=== PATIENT | female | born 1945 | race Caucasian/White ===

== ENCOUNTER 2017-01-07 11:45 | Emergency (ER) | payer MEDICARE ==
[2017-01-07 12:20] VITALS: RESP 18; TEMP 100
[2017-01-07] MEDS ORDERED: methylPREDNISolone SOD SUCCI 125 MG/2 ML VIAL IV STA (13:18)
[2017-01-07] MEDS ORDERED: IPRATROPIUM-ALBUTEROL 3 ML NEB INHALATION STA (13:18)
[2017-01-07] MEDS ORDERED: SODIUM CHLORIDE 0.9% 1,000 ML IV STA ×2 (13:18)
[2017-01-07] MEDS ORDERED: ACETAMINOPHEN TAB 500 MG TAB PO STA (13:21)
--- NOTE | 2017-01-07 13:40 | ED ---
URI HPI - General Chief Complaint: Upper Respiratory Infection Stated Complaint: poss uri,coughing Time Seen by Provider: 01/07/17 13:10 Source: patient, RN notes reviewed, old records reviewed Mode of arrival: ambulatory Limitations: no limitations - History of Present Illness Initial Comments: this is a 71-year-old female presents emergency Department chief complaint of cough and congestion for the past 3 weeks. She reports that she went to see a psychiatrist in psychiatrist placed her on Amoxil 1 week ago. She reports she has been taking and has approximately 3 days left. Patient states that the cough is continue to linger and she has productive sputum. Denies being a smoker. Reports that she ultimately very healthy. Denies any surgical or medical history besides depression. Patient reports that she has had no Motrin or Tylenol. She reports she felt very chilled and feels very fatigued. She reports that her cough is been Martha the point where she feels that she needs to vomit. Patient denies any recent fever, chills, shortness of breath, chest pain, back pain, abdominal pain, nausea vomiting, numbness or tingling, dysuria or hematuria, constipation or diarrhea, headaches or visual changes, or any other current symptoms - Related Data Previous Rx's Medication Instructions Recorded Albuterol Inhaler [Ventolin Hfa 1 - 2 puff INHALATION Q6HR PRN #1 01/07/17 Inhaler] inhaler Levofloxacin [Levaquin] 750 mg PO DAILY #7 tab 01/07/17 Promethazine/Dextromethorphan 5 ml PO TID #120 ml 01/07/17 [Phenergan DM Syrup] predniSONE 50 mg PO DAILY #7 tablet 01/07/17 Allergies Allergy/AdvReac Type Severity Reaction Status Date / Time No Known Allergies Allergy Verified 01/07/17 12:20 Review of Systems ROS Statement: Those systems with pertinent positive or pertinent negative responses have been documented in the HPI. ROS Other: All systems not noted in ROS Statement are negative. Past Medical History Additional Past Medical History / Comment(s): depression History of Any Multi-Drug Resistant Organisms: None Reported Past Surgical History: Orthopedic Surgery Additional Past Surgical History / Comment(s): shoulder feet and wrist Past Psychological History: Depression Smoking Status: Never smoker Past Alcohol Use History: None Reported Past Drug Use History: None Reported General Exam - General Exam Comments Initial Comments: this is a 71-year-old female. No acute distress. Limitations: no limitations General appearance: alert, in no apparent distress Head exam: Present: atraumatic, normocephalic, normal inspection Eye exam: Present: normal appearance, PERRL, EOMI. Absent: scleral icterus, conjunctival injection, periorbital swelling ENT exam: Present: normal exam, mucous membranes moist Neck exam: Present: normal inspection. Absent: tenderness, meningismus, lymphadenopathy Respiratory exam: Present: wheezes, rhonchi, other (has coarse lung sounds in significant productive cough.). Absent: normal lung sounds bilaterally, respiratory distress, rales, stridor Cardiovascular Exam: Present: regular rate, normal rhythm, normal heart sounds. Absent: systolic murmur, diastolic murmur, rubs, gallop, clicks GI/Abdominal exam: Present: soft, normal bowel sounds. Absent: distended, tenderness, guarding, rebound, rigid Extremities exam: Present: normal inspection, full ROM, normal capillary refill. Absent: tenderness, pedal edema, joint swelling, calf tenderness Back exam: Present: normal inspection Neurological exam: Present: alert, oriented X3, CN II-XII intact Psychiatric exam: Present: normal affect, normal mood Skin exam: Present: warm, dry, intact, normal color. Absent: rash Course Vital Signs 01/07/17 01/07/17 01/07/17 12:15 13:31 14:13 Temperature 100.0 F H Pulse Rate 85 78 79 Respiratory 18 18 Rate Blood Pressure 158/81 125/73 O2 Sat by Pulse 95 92 L Oximetry 01/07/17 14:46 Temperature Pulse Rate 77 Respiratory 18 Rate Blood Pressure 130/68 O2 Sat by Pulse 96 Oximetry Medical Decision Making - Medical Decision Making this is a 71-year-old female presents emergency Department chief complaint of cough and congestion for the past 3 weeks. She reports that she went to see a psychiatrist in psychiatrist placed her on Amoxil 1 week ago. She reports she has been taking and has approximately 3 days left. Patient states that the cough is continue to linger and she has productive sputum. Denies being a smoker. Patient did have significant cough and course lung sounds. PAtient CXR reviewed, no significant pneumonia. Lab work was reviewed, negative for any acute process. Patient cardiac enzymes and EKG are within normal limtiis. Patient given douneb treatment and is feeling better at this time. She was reevaluated and breathing has improved. Patient will be dsicharged with Rc for prednisone and levaquin. Patient radha be started on cough syrup and inhlaer. Discussed patient must follow up with PC tomorrow, and return if any alarming signs or symptoms occur. Patient agrees to treatment plna and will comply, return parameters discussed. - Lab Data Result diagrams: 01/07/17 13:30 01/07/17 13:30 Lab Results 01/07/17 01/07/17 01/07/17 Range/Units 13:30 13:30 13:30 WBC 9.1 (3.8-10.6) k/uL RBC 5.04 (3.80-5.40) m/uL Hgb 15.0 (11.4-16.0) gm/dL Hct 46.4 H (34.0-46.0) % MCV 92.2 (80.0-100.0) fL MCH 29.9 (25.0-35.0) pg MCHC 32.4 (31.0-37.0) g/dL RDW 14.6 (11.5-15.5) % Plt Count 337 (150-450) k/uL Neutrophils % 62 % Lymphocytes % 27 % Monocytes % 6 % Eosinophils % 3 % Basophils % 1 % Neutrophils # 5.6 (1.3-7.7) k/uL Lymphocytes # 2.5 (1.0-4.8) k/uL Monocytes # 0.5 (0-1.0) k/uL Eosinophils # 0.3 (0-0.7) k/uL Basophils # 0.1 (0-0.2) k/uL PT (9.0-12.0) sec INR (<1.2) APTT (22.0-30.0) sec Sodium 140 (137-145) mmol/L Potassium 4.4 (3.5-5.1) mmol/L Chloride 104 (98-107) mmol/L Carbon Dioxide 25 (22-30) mmol/L Anion Gap 11 mmol/L BUN 12 (7-17) mg/dL Creatinine 0.77 (0.52-1.04) mg/dL Est GFR (MDRD) Af Amer >60 (>60 ml/min/1.73 sqM) Est GFR (MDRD) Non-Af >60 (>60 ml/min/1.73 sqM) Glucose 92 (74-99) mg/dL Calcium 10.0 (8.4-10.2) mg/dL Magnesium 2.1 (1.6-2.3) mg/dL Total Bilirubin 0.5 (0.2-1.3) mg/dL AST 17 (14-36) U/L ALT 29 (9-52) U/L Alkaline Phosphatase 102 (38-126) U/L Total Creatine Kinase 31 (30-135) U/L CK-MB (CK-2) 0.3 (0.0-2.4) ng/mL CK-MB (CK-2) Rel Index 1.0 Troponin I <0.012 (0.000-0.034) ng/mL Total Protein 6.7 (6.3-8.2) g/dL Albumin 4.4 (3.5-5.0) g/dL Urine Color Urine Appearance (Clear) Urine pH (5.0-8.0) Ur Specific [place] (1.001-1.035) Urine Protein (Negative) Urine Glucose (UA) (Negative) Urine Ketones (Negative) Urine Blood (Negative) Urine Nitrite (Negative) Urine Bilirubin (Negative) Urine Urobilinogen (<2.0) mg/dL Ur Leukocyte Esterase (Negative) 01/07/17 01/07/17 Range/Units 13:30 13:30 WBC (3.8-10.6) k/uL RBC (3.80-5.40) m/uL Hgb (11.4-16.0) gm/dL Hct (34.0-46.0) % MCV (80.0-100.0) fL MCH (25.0-35.0) pg MCHC (31.0-37.0) g/dL RDW (11.5-15.5) % Plt Count (150-450) k/uL Neutrophils % % Lymphocytes % % Monocytes % % Eosinophils % % Basophils % % Neutrophils # (1.3-7.7) k/uL Lymphocytes # (1.0-4.8) k/uL Monocytes # (0-1.0) k/uL Eosinophils # (0-0.7) k/uL Basophils # (0-0.2) k/uL PT 10.2 (9.0-12.0) sec INR 1.0 (<1.2) APTT 22.5 (22.0-30.0) sec Sodium (137-145) mmol/L Potassium (3.5-5.1) mmol/L Chloride (98-107) mmol/L Carbon Dioxide (22-30) mmol/L Anion Gap mmol/L BUN (7-17) mg/dL Creatinine (0.52-1.04) mg/dL Est GFR (MDRD) Af Amer (>60 ml/min/1.73 sqM) Est GFR (MDRD) Non-Af (>60 ml/min/1.73 sqM) Glucose (74-99) mg/dL Calcium (8.4-10.2) mg/dL Magnesium (1.6-2.3) mg/dL Total Bilirubin (0.2-1.3) mg/dL AST (14-36) U/L ALT (9-52) U/L Alkaline Phosphatase (38-126) U/L Total Creatine Kinase (30-135) U/L CK-MB (CK-2) (0.0-2.4) ng/mL CK-MB (CK-2) Rel Index Troponin I (0.000-0.034) ng/mL Total Protein (6.3-8.2) g/dL Albumin (3.5-5.0) g/dL Urine Color Colorless Urine Appearance Clear (Clear) Urine pH 7.0 (5.0-8.0) Ur Specific [place] 1.003 (1.001-1.035) Urine Protein Negative (Negative) Urine Glucose (UA) Negative (Negative) Urine Ketones Negative (Negative) Urine Blood Negative (Negative) Urine Nitrite Negative (Negative) Urine Bilirubin Negative (Negative) Urine Urobilinogen <2.0 (<2.0) mg/dL Ur Leukocyte Esterase Negative (Negative) 01/07/17 14:25 EKG shows normal sinus rhythm. Possible left atrial enlargement. Borderline EKG. Ventricularly of 76 beats per minute. TN interval 146. QRS ration 90 ms. QT QTc is 380/436 no seconds. No drift elevation or T-wave inversion. No speech or ventricular arrhythmias. - Radiology Data Radiology results: report reviewed Increased perihilar markings consistent with but not diagnostic of pneumonia. Left basilar atelectasis. Cannot exclude a tiny left effusion. Disposition Clinical Impression: Bronchitis Disposition: HOME SELF-CARE Condition: Good Instructions: Acute Bronchitis (ED) Additional Instructions: Patient is to take antibiotics and steroids as prescribed. She will follow-up with her primary care provider within the next 1-2 days. Return to the emergency department if any alarming signs occur.. Prescriptions: Albuterol Inhaler [Ventolin Hfa Inhaler] 1 - 2 puff INHALATION Q6HR PRN #1 inhaler PRN Reason: Shortness Of Breath Levofloxacin [Levaquin] 750 mg PO DAILY #7 tab predniSONE 50 mg PO DAILY #7 tablet Promethazine/Dextromethorphan [Phenergan DM Syrup] 5 ml PO TID #120 ml Referrals: Rohan Hernandez MD [Primary Care Provider] - 1-2 days Time of Disposition: 14:28
[2017-01-07 13:43] LABS: Appearance,Urine Clear (Clear); Bilirubin,Urine Negative (Negative); Glucose,Urine (UA) Negative (Negative); Ketones,Urine Negative (Negative); Leukocyte Esterase,Urine Negative (Negative); Nitrite,Urine Negative (Negative); Protein,Urine Negative (Negative); Specific Gravity,Urine 1.003 (1.001-1.035); UA Billing (MACRO vs. MICRO) CHEM; Urobilinogen,Urine <2.0 mg/dL (<2.0)
[2017-01-07 13:44] LABS: Basophils # (A) 0.1 k/uL (0-0.2); Basophils % (A) 1 %; CHCM 33.8; Eosinophils # (A) 0.3 k/uL (0-0.7); Eosinophils % (A) 3 %; HCT 46.4 % (34.0-46.0); HDW 2.36; Luc # (Auto) 0.13; Luc % (Auto) 1; Lymphocytes # (A) 2.5 k/uL (1.0-4.8); Lymphocytes % (A) 27 %; MCH 29.9 pg (25.0-35.0); MCHC 32.4 g/dL (31.0-37.0); MCV 92.2 fL (80.0-100.0); Mean Platelet Volume 6.9; Monocytes # (A) 0.5 k/uL (0-1.0); Monocytes % (A) 6 %; Neutrophils # (A) 5.6 k/uL (1.3-7.7); Neutrophils % (A) 62 %; RBC 5.04 m/uL (3.80-5.40); RDW 14.6 % (11.5-15.5); WBC 9.1 k/uL (3.8-10.6); WBC (Perox) 8.91
[2017-01-07 13:53] LABS: ALT 29 U/L (9-52); AST 17 U/L (14-36); Alkaline Phosphatase 102 U/L (38-126); Anion Gap 11 mmol/L; Blood Urea Nitrogen 12 mg/dL (7-17); Carbon Dioxide 25 mmol/L (22-30); Chloride 104 mmol/L (98-107); Glucose 92 mg/dL (74-99); Magnesium 2.1 mg/dL (1.6-2.3); Non-African American GFR(MDRD) >60 (>60 ml/min/1.73 sqM); Potassium 4.4 mmol/L (3.5-5.1); Sodium 140 mmol/L (137-145); Total Bilirubin 0.5 mg/dL (0.2-1.3); Total Protein 6.7 g/dL (6.3-8.2)
[2017-01-07 13:55] LABS: Partial Thromboplastin Time 22.5 sec (22.0-30.0); Prothrombin Time 10.2 sec (9.0-12.0)
--- NOTE | 2017-01-07 14:03 | XR ---
EXAMINATION TYPE: XR chest 2V DATE OF EXAM: 01/07/2017 HISTORY: difficulty breathing. REFERENCE: NONE. FINDINGS: There are increased perihilar markings. There is no pneumonia or edema. There is some atele ctatic change at the left lung base. I could not exclude a small left effusion. IMPRESSION: 1. INCREASED PERIHILAR MARKINGS CONSISTENT WITH BUT NOT DIAGNOSTIC OF PNEUMONIA. 2. LEFT BASILAR ATELECTASIS. 3. I COULD NOT EXCLUDE A TINY LEFT EFFUSION.
[2017-01-07 14:13] LABS: Creatine Kinase 31 U/L (30-135)
[2017-01-07 14:26] LABS: Creatine Kinase MB 0.3 ng/mL (0.0-2.4); Troponin I <0.012 ng/mL (0.000-0.034)
[2017-01-07] MEDS ORDERED: LEVOFLOXACIN 750 MG TAB PO STA (14:30)
[2017-01-07 14:49] VITALS: BP 130/68; PULSE 77
== END 2017-01-07 14:53 | disposition home or self-care (01) ==
LOC: EC 11:45
DX: J40 Bronchitis, not specified as acute or chronic (principal); R53.83 Other fatigue
CPT/HCPCS: 99284 ×2; 96374 ×2; 96361 ×2; 36415; 94640; 93005; 80053; 82550; 82553; 83735; 84484; 85025; 85610; 85730; 81003; 87040; 87077; 87186; 71020; J2930

== ENCOUNTER → 2021-08-01 | Outpatient (CLI) | payer MEDICARE, OTHER ==
--- NOTE | 2021-08-01 22:37 | MR ---
MRI CERVICAL SPINE: CLINICAL HISTORY: Neck pain. Worsening neck pain extending into right arm TECHNIQUE: Multiplanar, multisequence imaging of the cervical spine is performed without contrast. COMPARISON: None. FINDINGS: Sagittal images of the cervical spine show the craniocervical junction to appear within nor mal limits. The cervical and upper thoracic spinal cord is normal in course, caliber, and signal. S ubtle grade 1 anterolisthesis C2 on C3. Vertebral alignment is otherwise satisfactory. The vertebral body heights are normal. Moderate to severe multilevel spurring and disc space narrowing at C5-C6 a nd C6-C7 levels. Mild disc space narrowing at additional levels. Some heterogeneous Modic type II end plate changes C5-C6 and C6-C7 level. Posterior disc herniations mildly efface the anterior thecal sac at all visualized upper thoracic levels. Subtle Axial images at C2-C3 level appear within normal limits. Axial images at C3-C4 level show broad-based posterior disc protrusion along with uncovertebral facet degenerative changes bilaterally, there is effacement of anterior thecal sac along with mild to mode rate right greater than left bilateral neural foraminal narrowing. Axial images at C4-C5 levels from broad-based left paracentral disc protrusion effacing the anterior thecal sac, patent bilateral neural foramina. Axial images at C5-C6 level show moderate size broad-based posterior disc protrusion effacing anterio r thecal sac and causing mild left along with moderate right-sided neural foraminal narrowing. Axial images at C6-C7 level showed broad based posterior disc protrusion effaces the anterior thecal sac up to ventral surface of spinal cord and causing advanced right along with moderate left-sided ne ural foraminal narrowing. Axial images at C7-T1 level appear within normal limits. IMPRESSION: Multilevel degenerative changes in cervical spine greatest at C6-C7 level as detailed abo ve.
== END | disposition home or self-care (01) ==
LOC: RADMRIMAIN 11:10
PROVIDERS: ATTEND Orthopaedic Surgery Orthopaedic Surgery of the Spine
DX: M47.812 Spondylosis without myelopathy or radiculopathy, cervical region (principal); M79.12 Myalgia of auxiliary muscles, head and neck; M50.322 Other cervical disc degeneration at C5-C6 level; M50.323 Other cervical disc degeneration at C6-C7 level; M43.12 Spondylolisthesis, cervical region; M25.78 Osteophyte, vertebrae; M25.511 Pain in right shoulder; M75.41 Impingement syndrome of right shoulder
CPT/HCPCS: 72141

== ENCOUNTER 2024-09-24 08:45 | Emergency (ER) | payer OTHER, MEDICARE ==
--- NOTE | 2024-09-24 08:54 | ED ---
General Adult HPI - General Chief complaint: Urogenital Stated complaint: Urogenital Time Seen by Provider: 09/24/24 08:53 Source: patient, RN notes reviewed Mode of arrival: ambulatory Limitations: no limitations - History of Present Illness Initial comments: 79-year-old female presenting to the emergency department with complaints of urinary retention and constipation. Patient states that she has not had a "good "bowel movement in about 3 days. Additionally, this morning patient states that she had a urge to use the bathroom and to urinate and was straining to go however was unable to except for a mild amount of trickling. She is complaining of mid abdominal/chest history of small bowel obstruction/bowel obstructions, urinary retention. States that she has not been passing gas. Denies nausea, vomiting, fevers or chills. - Related Data Previous Rx's Medication Instructions Recorded Albuterol Inhaler [Ventolin Hfa 1 - 2 puff INHALATION Q6HR PRN #1 01/07/17 Inhaler] inhaler Levofloxacin [Levaquin] 750 mg PO DAILY #7 tab 01/07/17 Promethazine/Dextromethorphan 5 ml PO TID #120 ml 01/07/17 [Phenergan DM Syrup] predniSONE 50 mg PO DAILY #7 tablet 01/07/17 Allergies Allergy/AdvReac Type Severity Reaction Status Date / Time No Known Allergies Allergy Verified 09/24/24 08:50 Review of Systems ROS Statement: Those systems with pertinent positive or pertinent negative responses have been documented in the HPI. ROS Other: All systems not noted in ROS Statement are negative. Past Medical History Past Medical History: Atrial Fibrillation Additional Past Medical History / Comment(s): depression History of Any Multi-Drug Resistant Organisms: None Reported Past Surgical History: Orthopedic Surgery Additional Past Surgical History / Comment(s): shoulder feet and wrist Past Psychological History: Anxiety, Depression Past Alcohol Use History: None Reported Past Drug Use History: None Reported General Exam Limitations: no limitations General appearance: alert, in no apparent distress Neck exam: Present: normal inspection. Absent: tenderness, meningismus, lymphadenopathy Respiratory exam: Present: normal lung sounds bilaterally. Absent: respiratory distress, wheezes, rales, rhonchi, stridor Cardiovascular Exam: Present: regular rate, normal rhythm, normal heart sounds. Absent: systolic murmur, diastolic murmur, rubs, gallop, clicks GI/Abdominal exam: Present: soft, tenderness (supurapubic), normal bowel sounds. Absent: distended, guarding, rebound, rigid Extremities exam: Present: normal inspection, full ROM, normal capillary refill. Absent: tenderness, pedal edema, joint swelling, calf tenderness Back exam: Present: normal inspection. Absent: CVA tenderness (R), CVA tenderness (L) Skin exam: Present: warm, dry, intact, normal color. Absent: rash Course Vital Signs 09/24/24 09/24/24 08:46 11:45 Temperature 97.7 F 98.8 F Pulse Rate 113 H 91 Respiratory 17 20 Rate Blood Pressure 152/95 132/96 O2 Sat by Pulse 98 97 Oximetry Medical Decision Making - Medical Decision Making Was pt. sent in by a medical professional or institution (, PA, HANDBAG FRAMES INSPECTOR, urgent care, hospital, or fpc...) When possible be specific @ -No Did you speak to anyone other than the patient for history (EMS, parent, family, police, friend...)? What history was obtained from this source @ -No Did you review nursing and triage notes (agree or disagree)? Why? @ -I reviewed and agree with nursing and triage notes Were old charts reviewed (outside hosp., previous admission, EMS record, old EKG, old radiological studies, urgent care reports/EKG's, fpc records)? Report findings @ -No old charts were reviewed Differential Diagnosis (chest pain, altered mental status, abdominal pain women, abdominal pain men, vaginal bleeding, weakness, fever, dyspnea, syncope, headache, dizziness, GI bleed, back pain, seizure, CVA, palpatations, mental health, musculoskeletal)? @ -Constipation, urinary retention, bowel obstruction, this is not all-inclusive EKG interpreted by me (3pts min.). @ -None X-rays interpreted by me (1pt min.). @ -X-ray of the abdomen is unremarkable. CT interpreted by me (1pt min.). @ -None done U/S interpreted by me (1pt. min.). @ -None done What testing was considered but not performed or refused? (CT, X-rays, U/S, labs)? Why? @ -None What meds were considered but not given or refused? Why? @ -None Did you discuss the management of the patient with other professionals (professionals i.e. DrAnup, PA, HANDBAG FRAMES INSPECTOR, lab, RT, psych nurse, transition social worker, gas inspector, teacher, motorized squad commanding officer, rn case mgr)? Give summary @ -No Was smoking cessation discussed for >3mins.? @ -No Was critical care preformed (if so, how long)? @ -No Were there social determinants of health that impacted care today? How? (Homelessness, low income, unemployed, alcoholism, drug addiction, transportation, low edu. Level, literacy, decrease access to med. care, care home, rehab)? @ -No Was there de-escalation of care discussed even if they declined (Discuss DNR or withdrawal of care, Hospice)? DNR status @ -No What co-morbidities impacted this encounter? (DM, HTN, Smoking, COPD, CAD, Cancer, CVA, ARF, Chemo, Hep., AIDS, mental health diagnosis, sleep apnea, morbid obesity)? @ -None Was patient admitted / discharged? Hospital course, mention meds given and route, prescriptions, significant lab abnormalities, going to OR and other pertinent info. @ -Discharge. 79-year-old female was into the emergency room with complaints of urinary retention and constipation. Bladder scan completed reveals over 900 cc of urine within the bladder. Tubbs catheter was placed with immediate relief of abdominal distention. Urinalysis reveals no signs of infection. X-ray of the abdomen is unremarkable. Patient is provided with urology referral. Patient is discharged with catheter in place. Case is discussed my attending Dr. Villaseñor Undiagnosed new problem with uncertain prognosis? @ -No Drug Therapy requiring intensive monitoring for toxicity (Heparin, Nitro, Insulin, Cardizem)? @ -No Were any procedures done? @ -No Diagnosis/symptom? @ -urinary retention Acute, or Chronic, or Acute on Chronic? @ -acute Uncomplicated (without systemic symptoms) or Complicated (systemic symptoms)? @ -uncomplicated Side effects of treatment? @ -No Exacerbation, Progression, or Severe Exacerbation? @ -No Poses a threat to life or bodily function? How? (Chest pain, [place], [place], pneumonia, PE, COPD, DKA, ARF, appy, cholecystitis, CVA, Diverticulitis, Homicidal, Suicidal, threat to staff... and all critical care pts) @ -No - Lab Data Lab Results 09/24/24 Range/Units 09:35 Urine Color Colorless Urine Appearance Clear (Clear) Urine pH 5.5 (5.0-8.0) Ur Specific [place] 1.005 (1.001-1.035) Urine Protein Negative (Negative) Urine Glucose (UA) Negative (Negative) Urine Ketones Negative (Negative) Urine Blood Negative (Negative) Urine Nitrite Negative (Negative) Urine Bilirubin Negative (Negative) Urine Urobilinogen <2.0 (<2.0) mg/dL Ur Leukocyte Esterase Negative (Negative) Disposition Clinical Impression: Urinary retention Disposition: HOME SELF-CARE Condition: Good Instructions (If sedation given, give patient instructions): Tubbs Catheter Placement and Care (ED), Acute Urinary Retention in Women (ED) Additional Instructions: Please return to the Emergency Department if symptoms worsen or any other concerns. Please follow-up with provided urologist for further evaluation. Is patient prescribed a controlled substance at d/c from ED?: No Referrals: Rohan Hernandez MD [Primary Care Provider] - 1-2 days Derrick Augustine MD [STAFF PHYSICIAN] - 1-2 days Time of Disposition: 10:23
[2024-09-24 09:46] LABS: Appearance,Urine Clear (Clear); Bilirubin,Urine Negative (Negative); Blood,Urine Negative (Negative); Color,Urine Colorless; Glucose,Urine (UA) Negative (Negative); Ketones,Urine Negative (Negative); Leukocyte Esterase,Urine Negative (Negative); Nitrite,Urine Negative (Negative); PH, Urine 5.5 (5.0-8.0); Protein,Urine Negative (Negative); Specific Gravity,Urine 1.005 (1.001-1.035); Urobilinogen,Urine <2.0 mg/dL (<2.0)
--- NOTE | 2024-09-24 10:16 | XR ---
EXAMINATION TYPE: XR KUB DATE OF EXAM: 09/24/2024 9:51 AM COMPARISON: None. CLINICAL INDICATION: Female, 79 years old with history of constipation, urine retention, TECHNIQUE: XR KUB view(s) obtained. FINDINGS: There is a normal bowel gas pattern. No free air is evident. No suspicious differential air-fluid lev els. Psoas margins are normal. No organomegaly is present. Calcification is in the upper pelvis could be related to calcified fibroids. IMPRESSION: 1. Unremarkable [facility], , 09/24/2024 10:13 AM
[2024-09-24 11:49] VITALS: BP 132/96; PULSE 91; RESP 20; TEMP 98.8
== END 2024-09-24 11:49 | disposition home or self-care (01) ==
LOC: EC 08:45
DX: R33.9 Retention of urine, unspecified (principal); R10.30 Lower abdominal pain, unspecified
CPT/HCPCS: 51702; 51798; 74018; 81003; 99284

== ENCOUNTER 2024-09-25 11:05 | Emergency (ER) | payer OTHER, MEDICARE ==
--- NOTE | 2024-09-25 11:41 | ED ---
Recheck HPI - General Chief Complaint: Recheck/Abnormal Lab/Rx Stated Complaint: Urogenital Time Seen by Provider: 09/25/24 11:25 Source: patient, RN notes reviewed Mode of arrival: ambulatory Limitations: no limitations - History of Present Illness Initial Comments: 79-year-old female presenting to the emergency department for reevaluation. Patient states that she was evaluated yesterday emergency department for urinary retention and constipation. Patient had over 900 cc of urine within her bladder when she was discharged with a Tubbs catheter in place. Patient states that this morning the catheter bag was very full and heavy causing pulling on her leg and leakage from the drainage site. Additionally, patient states that she is still constipated. States that she is still passing gas. Denies nausea, vomiting, abdominal pain. Patient has appointment with her PCP at 1430 this afternoon. - Related Data Previous Rx's Medication Instructions Recorded Albuterol Inhaler [Ventolin Hfa 1 - 2 puff INHALATION Q6HR PRN #1 01/07/17 Inhaler] inhaler Levofloxacin [Levaquin] 750 mg PO DAILY #7 tab 01/07/17 Promethazine/Dextromethorphan 5 ml PO TID #120 ml 01/07/17 [Phenergan DM Syrup] predniSONE 50 mg PO DAILY #7 tablet 01/07/17 Allergies Allergy/AdvReac Type Severity Reaction Status Date / Time No Known Allergies Allergy Verified 09/25/24 11:11 Review of Systems ROS Statement: Those systems with pertinent positive or pertinent negative responses have been documented in the HPI. ROS Other: All systems not noted in ROS Statement are negative. Past Medical History Past Medical History: Atrial Fibrillation Additional Past Medical History / Comment(s): depression History of Any Multi-Drug Resistant Organisms: None Reported Past Surgical History: Orthopedic Surgery Additional Past Surgical History / Comment(s): shoulder feet and wrist Past Psychological History: Anxiety, Depression Smoking Status: Never smoker Past Alcohol Use History: None Reported Past Drug Use History: None Reported General Exam Limitations: no limitations General appearance: alert, in no apparent distress Neck exam: Present: normal inspection. Absent: tenderness, meningismus, lymphadenopathy Respiratory exam: Present: normal lung sounds bilaterally. Absent: respiratory distress, wheezes, rales, rhonchi, stridor Cardiovascular Exam: Present: regular rate, normal rhythm, normal heart sounds. Absent: systolic murmur, diastolic murmur, rubs, gallop, clicks GI/Abdominal exam: Present: soft, normal bowel sounds. Absent: distended, tenderness, guarding, rebound, rigid Extremities exam: Present: normal inspection, full ROM, normal capillary refill. Absent: tenderness, pedal edema, joint swelling, calf tenderness Back exam: Present: normal inspection Skin exam: Present: warm, dry, intact, normal color. Absent: rash Course Vital Signs 09/25/24 09/25/24 11:06 11:56 Temperature 97.7 F 98.1 F Pulse Rate 64 62 Respiratory 20 18 Rate Blood Pressure 130/81 133/52 O2 Sat by Pulse 96 96 Oximetry Medical Decision Making - Medical Decision Making Was pt. sent in by a medical professional or institution (, PA, MISSION SUPPORT SPECIALIST, urgent care, hospital, or longterm...) When possible be specific @ -No Did you speak to anyone other than the patient for history (EMS, parent, family, police, friend...)? What history was obtained from this source @ -No Did you review nursing and triage notes (agree or disagree)? Why? @ -I reviewed and agree with nursing and triage notes Were old charts reviewed (outside hosp., previous admission, EMS record, old EKG, old radiological studies, urgent care reports/EKG's, longterm records)? Report findings @Reviewed x-ray KUB completed on 09/24/2024 that revealed a nonspecific abdomen. Differential Diagnosis (chest pain, altered mental status, abdominal pain women, abdominal pain men, vaginal bleeding, weakness, fever, dyspnea, syncope, headache, dizziness, GI bleed, back pain, seizure, CVA, palpatations, mental health, musculoskeletal)? @ -Tubbs catheter blockage, constipation, urinary tract infection, small bowel obstruction, this is not all-inclusive EKG interpreted by me (3pts min.). @ -None X-rays interpreted by me (1pt min.). @ -None done CT interpreted by me (1pt min.). @ -None done U/S interpreted by me (1pt. min.). @ -None done What testing was considered but not performed or refused? (CT, X-rays, U/S, labs)? Why? @ -None What meds were considered but not given or refused? Why? @ -None Did you discuss the management of the patient with other professionals (professionals i.e. , PA, M[employer] SUPPORT SPECIALIST, lab, RT, psych nurse, social studies department chair, shop mechanic, teacher, patient safety officer, protective services case worker)? Give summary @ -No Was smoking cessation discussed for >3mins.? @ -No Was critical care preformed (if so, how long)? @ -No Were there social determinants of health that impacted care today? How? (Homelessness, low income, unemployed, alcoholism, drug addiction, transportation, low edu. Level, literacy, decrease access to med. care, snf, rehab)? @ -No Was there de-escalation of care discussed even if they declined (Discuss DNR or withdrawal of care, Hospice)? DNR status @ -No What co-morbidities impacted this encounter? (DM, HTN, Smoking, COPD, CAD, Can cer, CVA, ARF, Chemo, Hep., AIDS, mental health diagnosis, sleep apnea, morbid obesity)? @ -None Was patient admitted / discharged? Hospital course, mention meds given and route, prescriptions, significant lab abnormalities, going to OR and other pertinent info. @ -Discharge. 79-year-old female presents emergency room with urinary catheter complaints and constipation. Tubbs catheter was drained by nursing staff and leg bag was placed and patient states that she is feeling better. Catheter is draining appropriately. Patient has no abdominal pain. Reviewed x-ray from yesterday which revealed no evidence of obstruction or severe fecal retention. Discussed with patient that mild constipation is likely secondary to urinary retention. Patient provided with outpatient magnesium citrate to take at home so recommended to increase oral hydration and fiber intake. Return parameters discussed. Patient has appointment with PCP later this afternoon. Case discussed with my attending Dr. Villaseñor Undiagnosed new problem with uncertain prognosis? @ -No Drug Therapy requiring intensive monitoring for toxicity (Heparin, Nitro, Insulin, Cardizem)? @ -No Were any procedures done? @ -No Diagnosis/symptom? @ -Constipation Acute, or Chronic, or Acute on Chronic? @ -Acute Uncomplicated (without systemic symptoms) or Complicated (systemic symptoms)? @ -Uncomplicated Side effects of treatment? @ -No Exacerbation, Progression, or Severe Exacerbation? @ -No Poses a threat to life or bodily function? How? (Chest pain, [place], [place], pneumonia, PE, COPD, DKA, ARF, appy, cholecystitis, CVA, Diverticulitis, Homicidal, Suicidal, threat to staff... and all critical care pts) @ -No Disposition Clinical Impression: Constipation, Tubbs catheter problem Disposition: HOME SELF-CARE Condition: Good Instructions (If sedation given, give patient instructions): Constipation (ED) Additional Instructions: Please return to the Emergency Department if symptoms worsen or any other concerns. Is patient prescribed a controlled substance at d/c from ED?: No Referrals: Rohan Hernandez MD [Primary Care Provider] - 1-2 days Time of Disposition: 11:40
[2024-09-25] MEDS: MAGNESIUM CITRATE 296 ML BOTTLE PO ONE (11:56)
[2024-09-25 11:57] VITALS: BP 133/52; PULSE 62; RESP 18; TEMP 98.1
== END 2024-09-25 11:57 | disposition home or self-care (01) ==
LOC: EC 11:05
DX: T83.098A Other mechanical complication of other urinary catheter, initial encounter (principal); K59.00 Constipation, unspecified
CPT/HCPCS: 99283

== ENCOUNTER 2024-09-25 21:34 | Inpatient (IN) | payer MEDICARE, OTHER ==
--- NOTE | 2024-09-25 22:30 | ED ---
Female Urogenital HPI - General Source: patient Mode of arrival: ambulatory Limitations: no limitations <Lavern Ross - Last Filed: 09/25/24 22:29> <Kristin Rome - Last Filed: 09/26/24 08:24> - General Chief complaint: Urogenital Stated complaint: blood in urine Time Seen by Provider: 09/25/24 22:29 - History of Present Illness Initial comments: Quick note: 79-year-old female presenting with chief complaint of blood in the urine. Patient was seen here yesterday and earlier today, she had a Tubbs catheter placed due to urinary retention. She reports that starting earlier today she had blood in the urine which concerned her. She is on warfarin for atrial fibrillation. No pain. No injury or trauma. (Lavern Ross) Patient is a 79 y/o female PMH atrial fibrillation on coumadin presenting to hematuria. Patient had presented to the ER 2 days ago due to constipation and d ifficulty urinating. She was given milk of magnesia and a Tubbs catheter was placed. She presented this morning due to difficulty with her Tubbs bag and getting it to stay in place. She returned this evening after being on noticing blood in her urine. She endorses suprapubic pressure. She states she has been able to have a small bowel movement since taking milk of magnesia. She states that due to being in and out of the hospital today she has not taken her home atenolol or Coumadin. She currently denies chest pain, shortness of breath, palpitations or dizziness. Denies fevers or chills, nausea or vomiting. Denies diarrhea, does note having darker stools recently. Denies flank pain. Denies trauma. On arrival to the ER this evening patient was found to be in A-fib with RVR. She states that she is not usually in atrial fibrillation but does have a history of this. (Kristin Rome) - Related Data Home Medications Medication Instructions Recorded Confirmed FLUoxetine HCL [PROzac] 20 mg PO HS 09/26/24 09/26/24 QUEtiapine [SEROquel] 50 mg PO HS 09/26/24 09/26/24 Warfarin Sodium 2.5 mg PO SUTUTHSA 09/26/24 09/26/24 Warfarin Sodium 5 mg PO MOWEFR 09/26/24 09/26/24 atenoloL [Tenormin] 100 mg PO HS 09/26/24 09/26/24 dilTIAZem HCL [Cardizem CD] 120 mg PO DAILY 09/26/24 09/26/24 lamoTRIgine [LaMICtal] 300 mg PO HS 09/26/24 09/26/24 Previous Rx's Medication Instructions Recorded Apixaban [Eliquis] 5 mg PO BID #60 tab 09/26/24 Allergies Allergy/AdvReac Type Severity Reaction Status Date / Time No Known Allergies Allergy Verified 09/26/24 07:59 Review of Systems ROS Other: All systems not noted in ROS Statement are negative. <Lavern Ross - Last Filed: 09/25/24 22:29> ROS Other: All systems not noted in ROS Statement are negative. <Kristin Rome - Last Filed: 09/26/24 08:24> ROS Statement: Those systems with pertinent positive or pertinent negative responses have been documented in the HPI. Past Medical History Past Medical History: Atrial Fibrillation Additional Past Medical History / Comment(s): depression History of Any Multi-Drug Resistant Organisms: None Reported Past Surgical History: Orthopedic Surgery Additional Past Surgical History / Comment(s): shoulder feet and wrist Past Psychological History: Anxiety, Depression Smoking Status: Never smoker Past Alcohol Use History: None Reported Past Drug Use History: None Reported <Lavern Ross - Last Filed: 09/25/24 22:29> General Exam Limitations: no limitations <Lavern Ross - Last Filed: 09/25/24 22:29> <Kristin Rome - Last Filed: 09/26/24 08:24> - General Exam Comments Initial Comments: Visual Physical Exam Vital signs reviewed General: Well-appearing, nontoxic, no acute distress. Head: Normocephalic, atraumatic Eyes: PERRLA, EOMI ENT: Airway patent Chest: Nonlabored breathing Skin: No visual rash, normal skin tone Neuro: Alert and oriented 3 Musculoskeletal: No gross abnormalities (Lavern Ross) PE: CONSTITUTIONAL: No apparent distress, well appearing SKIN: Warm, dry, no jaundice, hives or petechiae EYES: Pupils are equally round, extraocular movements intact without nystagmus, clear conjunctiva, non-icteric sclera HENT: Normocephalic, atraumatic, moist mucus membranes, oropharynx clear without exudates NECK: , Full range of motion, normal appearance PULMONARY: Clear to auscultation without wheezes, rhonchi, or rales, normal excursion, no accessory muscle use and no stridor CARDIOVASCULAR: Tachycardia, irregularly irregular rate and rhythm, normal S1 and S2. No appreciated murmurs, however exam is limited due to A-fib with RVR, strong radial pulses with intact distal perfusion. No lower extremity edema GASTROINTESTINAL: Soft, active bowel sounds throughout, non-tender, non- distended, no palpable masses, no rebound or guarding. No hepatosplenomegaly, no CVA tenderness GENITOURINARY: MUSCULOSKELETAL: Extremities have no gross deformity, no edema, redness, or swelling. NEUROLOGIC:_a/o x 3, GCS 15, normal mentation and speech. Moves all extremities x 4 without motor or sensory deficit PSYCHIATRIC:_normal mood and affect, thought process is clear and linear (Kristin Rome) Course Vital Signs 09/25/24 09/26/24 09/26/24 21:57 01:00 04:08 Temperature 98.4 F Pulse Rate 136 H 124 H 98 Respiratory 18 17 17 Rate Blood Pressure 113/88 114/102 116/80 O2 Sat by Pulse 98 94 L 97 Oximetry 09/26/24 09/26/24 06:37 07:46 Temperature 98.4 F Pulse Rate 111 H 102 H Respiratory 17 18 Rate Blood Pressure 127/97 149/117 O2 Sat by Pulse 97 96 Oximetry Medical Decision Making <Lavern Ross - Last Filed: 09/25/24 22:29> - Lab Data Result diagrams: 09/26/24 00:10 09/26/24 00:10 <Kristin Rome - Last Filed: 09/26/24 08:24> - Medical Decision Making I performed the quick note portion of this visit, electronically signed Lavern Ross PA-C (Lavern Ross) Was pt. sent in by a medical professional or institution (NEWTON Parra, SERGING MACHINE OPERATOR [employer], urgent care, hospital, or long-term...) When possible be specific @ -No Did you speak to anyone other than the patient for history (EMS, parent, family, police, friend...)? What history was obtained from this source @ -Yes, I spoke with patient's significant other who states patient has had exertional dyspnea and generalized weakness over the last few months. Did you review nursing and triage notes (agree or disagree)? Why? @ -I reviewed nursing and triage notes Were old charts reviewed (outside hosp., previous admission, EMS record, old EKG, old radiological studies, urgent care reports/EKG's, long-term records)? Report findings @ -Medical records reviewed-Reviewed ED visits from today and yesterday, from ER visit this morning, states that patient had presented for difficulty managing her Tubbs catheter bag, reviewed ED visit from 09/24/2024, patient had presented for 3 days of constipation as well as urinary retention, states at that time patient had a bladder scan that revealed 900 cc of urine in the patient's bladder, a Tubbs catheter was placed, UA showed no signs of infection at that time, abdominal x-ray was unremarkable. Patient was discharged home with referral to urology Differential Diagnosis (chest pain, altered mental status, abdominal pain women, abdominal pain men, vaginal bleeding, weakness, fever, dyspnea, syncope, headache, dizziness, GI bleed, back pain, seizure, CVA, palpatations, mental health, musculoskeletal)? Differential Palpitations Ventricular arrhythmias, atrial arrhythmias, myocardial infarction, anemia, thyrotoxicosis, electrolyte imbalance, hypokalemia,missed medication doses, pulmonary disease, drugs, alcohol, anxiety, stress.... This is not meant to be an all-inclusive list. EKG interpreted by me (3pts min.). @Atrial fibrillation with RVR, rate 156 bpm, QT/QTc 266/54 ms, normal axis, T wave inversions lead aVR otherwise no significant elevations or depressions X-rays interpreted by me (1pt min.). Personally reviewed chest x-ray, I see no evidence of consolidation or pleural effusions agree with radiologist interpretation CT interpreted by me (1pt min.). @ -None done U/S interpreted by me (1pt. min.). @ -None done What testing was considered but not performed or refused? (CT, X-rays, U/S, labs)? Why? @Blood cultures were considered however patient had only mild leukocytosis, white blood cell count 11.38, she is afebrile, she was tachycardic I suspect tachycardia was secondary to missed dosages of home medications What meds were considered but not given or refused? Why? @ -None Did you discuss the management of the patient with other professionals (professionals i.e. , PA, SERGING MACHINE OPERATOR [employer], lab, RT, psych nurse, psychosocial rehabilitation counselor, vehicle insurance agent, teacher, chief digital officer, outsole caser)? Give summary @ -No Was smoking cessation discussed for >3mins.? @ -No Was critical care preformed (if so, how long)? Yes 35 minutes Were there social determinants of health that impacted care today? How? (Homelessness, low income, unemployed, alcoholism, drug addiction, transportation, low edu. Level, literacy, decrease access to med. care, [facility], rehab)? @ -No Was there de-escalation of care discussed even if they declined (Discuss DNR or withdrawal of care, Hospice)? @ -No What co-morbidities impacted this encounter? (DM, HTN, Smoking, COPD, CAD, Cancer, CVA, ARF, Chemo, Hep., AIDS, mental health diagnosis, sleep apnea, mo rbid obesity)? A-fib on Coumadin Was patient admitted / discharged? Hospital course, mention meds given and route, prescriptions, significant lab abnormalities, going to OR and other pertinent info. @Admission- Patient is a 79-year-old female presenting today for hematuria. Tubbs catheter recently placed due to constipation and urinary retention 2 days ago. I suspect urinary retention was secondary to constipation. Incidentally while patient was being checked and she was found to be in A-fib with RVR. Patient has missed her home atenolol, Coumadin and another one of her home heart medications that she is unsure of the name of. She does not remember the dosages of these medications. For this reason patient was given a Cardizem bolus, be placed on a Cardizem infusion and given 25 mg of atenolol. INR was obtained and was 1.6. Pharmacy to dose Coumadin order was placed. Patient's rate became controlled after Cardizem bolus, sustaining heart rates below 110 bpm. Troponin undetecta ble. Fleets enema was given with small amount of stool output. Tubbs catheter was removed since patient's constipation has improved and will allow patient to attempt to urinate spontaneously. Urinalysis was significant for signs of UTI. Rocephin ordered. There was blood in the urine I suspect this is secondary to trauma from her Tubbs catheter. She has no flank pain I have low suspicion for ureterolithiasis and do not feel she needs further imaging for this at this point.She does not my leukocytosis white blood cell 11.38, she is afebrile. Discussed with patient plan for admission for A-fib with RVR. She is agreeable plan of care. Case discussed with Dr. Rodríguez who kindly accepted patient for admission. Undiagnosed new problem with uncertain prognosis? @ -No Drug Therapy requiring intensive monitoring for toxicity (Heparin, Nitro, Insulin, Cardizem)? @ -No Were any procedures done? @ -No Diagnosis/symptom? UTI, A fib with rvr Acute, or Chronic, or Acute on Chronic? acute Uncomplicated (without systemic symptoms) or Complicated (systemic symptoms)? complicated Side effects of treatment? @ -No Exacerbation, Progression, or Severe Exacerbation? @ -No Poses a threat to life or bodily function? How? (Chest pain, USA, PA, pneumonia, PE, COPD, DKA, ARF, appy, cholecystitis, CVA, Diverticulitis, Homicidal, Suicidal, threat to staff... and all critical care pts) yes (Kristin Rome) - Lab Data Lab Results 09/26/24 09/26/24 09/26/24 Range/Units 00:10 00:10 00:10 WBC 11.38 H (4.50-10.00) 10*3/uL RBC 5.12 (4.10-5.20) 10*6/uL Hgb 15.3 H (12.0-15.0) g/dL Hct 45.5 (37.2-46.3) % MCV 88.9 (80.0-97.0) fL MCH 29.9 (27.0-32.0) pg MCHC 33.6 (32.0-37.0) g/dL Plt Count 266 (140-440) 10*3/uL MPV 10.8 (9.5-12.2) fL Immature Gran % (Auto) 0.2 % Neutrophils % 51.0 % Lymphocytes % 38.6 % Monocytes % 8.0 % Eosinophils % 1.4 % Basophils % 0.8 % Immature Gran # 0.02 (0.00-0.04) 10*3/uL Neutrophils # 5.81 (1.80-7.70) 10*3/uL Lymphocytes # 4.39 (0.90-5.00) 10*3/uL Monocytes # 0.91 (0.20-1.00) 10*3/uL Eosinophils # 0.16 (0.04-0.35) 10*3/uL Basophils # 0.09 (0.00-0.10) 10*3/uL PT 17.0 H (10.0-12.5) sec INR 1.6 H (<1.2) APTT 28.7 (22.0-30.0) sec Sodium 135 L (137-145) mmol/L Potassium 4.6 (3.5-5.1) mmol/L Chloride 102 (98-107) mmol/L Carbon Dioxide 23 (22-30) mmol/L Anion Gap 10 mmol/L BUN 17 (7-17) mg/dL Creatinine 0.85 (0.52-1.04) mg/dL Est GFR (CKD-EPI)AfAm 76 (>60 ml/min/1.73 sqM) Est GFR (CKD-EPI)NonAf 66 (>60 ml/min/1.73 sqM) Glucose 105 H (74-99) mg/dL Calcium 10.1 (8.4-10.2) mg/dL Magnesium 2.5 H (1.6-2.3) mg/dL Total Bilirubin 0.6 (0.2-1.3) mg/dL AST 23 (14-36) U/L ALT 14 (4-34) U/L Alkaline Phosphatase 112 (38-126) U/L Troponin I (0.000-0.034) ng/mL Total Protein 6.3 (6.3-8.2) g/dL Albumin 4.4 (3.5-5.0) g/dL Lipase 267 (23-300) U/L Urine Color Urine Appearance (Clear) Urine pH (5.0-8.0) Ur Specific [place] (1.001-1.035) Urine Protein (Negative) Urine Glucose (UA) (Negative) Urine Ketones (Negative) Urine Blood (Negative) Urine Nitrite (Negative) Urine Bilirubin (Negative) Urine Urobilinogen (<2.0) mg/dL Ur Leukocyte Esterase (Negative) Urine RBC (0-5) /hpf Urine WBC (0-5) /hpf Ur Squamous Epith Cells (0-4) /hpf Urine Bacteria (None) /hpf Urine Mucus (None) /hpf Blood Type Blood Type Confirm Blood Type Recheck Bld Type Recheck Status Antibody Screen Spec Expiration Date 09/26/24 09/26/24 09/26/24 Range/Units 00:10 02:14 02:19 WBC (4.50-10.00) 10*3/uL RBC (4.10-5.20) 10*6/uL Hgb (12.0-15.0) g/dL Hct (37.2-46.3) % MCV (80.0-97.0) fL MCH (27.0-32.0) pg MCHC (32.0-37.0) g/dL Plt Count (140-440) 10*3/uL MPV (9.5-12.2) fL Immature Gran % (Auto) % Neutrophils % % Lymphocytes % % Monocytes % % Eosinophils % % Basophils % % Immature Gran # (0.00-0.04) 10*3/uL Neutrophils # (1.80-7.70) 10*3/uL Lymphocytes # (0.90-5.00) 10*3/uL Monocytes # (0.20-1.00) 10*3/uL Eosinophils # (0.04-0.35) 10*3/uL Basophils # (0.00-0.10) 10*3/uL PT (10.0-12.5) sec INR (<1.2) APTT (22.0-30.0) sec Sodium (137-145) mmol/L Potassium (3.5-5.1) mmol/L Chloride (98-107) mmol/L Carbon Dioxide (22-30) mmol/L Anion Gap mmol/L BUN (7-17) mg/dL Creatinine (0.52-1.04) mg/dL Est GFR (CKD-EPI)AfAm (>60 ml/min/1.73 sqM) Est GFR (CKD-EPI)NonAf (>60 ml/min/1.73 sqM) Glucose (74-99) mg/dL Calcium (8.4-10.2) mg/dL Magnesium (1.6-2.3) mg/dL Total Bilirubin (0.2-1.3) mg/dL AST (14-36) U/L ALT (4-34) U/L Alkaline Phosphatase (38-126) U/L Troponin I <0.012 (0.000-0.034) ng/mL Total Protein (6.3-8.2) g/dL Albumin (3.5-5.0) g/dL Lipase (23-300) U/L Urine Color Urine Appearance (Clear) Urine pH (5.0-8.0) Ur Specific [place] (1.001-1.035) Urine Protein (Negative) Urine Glucose (UA) (Negative) Urine Ketones (Negative) Urine Blood (Negative) Urine Nitrite (Negative) Urine Bilirubin (Negative) Urine Urobilinogen (<2.0) mg/dL Ur Leukocyte Esterase (Negative) Urine RBC (0-5) /hpf Urine WBC (0-5) /hpf Ur Squamous Epith Cells (0-4) /hpf Urine Bacteria (None) /hpf Urine Mucus (None) /hpf Blood Type O Positive Blood Type Confirm O Positive Blood Type Recheck No Previous Record Bld Type Recheck Status CABO Indicated Antibody Screen NEGATIVE Spec Expiration Date 09/29/2024 - 231809/26/24 Range/Units 03:51 WBC (4.50-10.00) 10*3/uL RBC (4.10-5.20) 10*6/uL Hgb (12.0-15.0) g/dL Hct (37.2-46.3) % MCV (80.0-97.0) fL MCH (27.0-32.0) pg MCHC (32.0-37.0) g/dL Plt Count (140-440) 10*3/uL MPV (9.5-12.2) fL Immature Gran % (Auto) % Neutrophils % % Lymphocytes % % Monocytes % % Eosinophils % % Basophils % % Immature Gran # (0.00-0.04) 10*3/uL Neutrophils # (1.80-7.70) 10*3/uL Lymphocytes # (0.90-5.00) 10*3/uL Monocytes # (0.20-1.00) 10*3/uL Eosinophils # (0.04-0.35) 10*3/uL Basophils # (0.00-0.10) 10*3/uL PT (10.0-12.5) sec INR (<1.2) APTT (22.0-30.0) sec Sodium (137-145) mmol/L Potassium (3.5-5.1) mmol/L Chloride (98-107) mmol/L Carbon Dioxide (22-30) mmol/L Anion Gap mmol/L BUN (7-17) mg/dL Creatinine (0.52-1.04) mg/dL Est GFR (CKD-EPI)AfAm (>60 ml/min/1.73 sqM) Est GFR (CKD-EPI)NonAf (>60 ml/min/1.73 sqM) Glucose (74-99) mg/dL Calcium (8.4-10.2) mg/dL Magnesium (1.6-2.3) mg/dL Total Bilirubin (0.2-1.3) mg/dL AST (14-36) U/L ALT (4-34) U/L Alkaline Phosphatase (38-126) U/L Troponin I (0.000-0.034) ng/mL Total Protein (6.3-8.2) g/dL Albumin (3.5-5.0) g/dL Lipase (23-300) U/L Urine Color Light Red Urine Appearance Cloudy H (Clear) Urine pH 6.0 (5.0-8.0) Ur Specific [place] 1.013 (1.001-1.035) Urine Protein Trace H (Negative) Urine Glucose (UA) Negative (Negative) Urine Ketones Negative (Negative) Urine Blood Large H (Negative) Urine Nitrite Negative (Negative) Urine Bilirubin Negative (Negative) Urine Urobilinogen <2.0 (<2.0) mg/dL Ur Leukocyte Esterase Small H (Negative) Urine RBC >182 H (0-5) /hpf Urine WBC 13 H (0-5) /hpf Ur Squamous Epith Cells <1 (0-4) /hpf Urine Bacteria Rare H (None) /hpf Urine Mucus Rare H (None) /hpf Blood Type Blood Type Confirm Blood Type Recheck Bld Type Recheck Status Antibody Screen Spec Expiration Date Disposition <Lavern Ross - Last Filed: 09/25/24 22:29> <Kristin Rome - Last Filed: 09/26/24 08:24> Clinical Impression: Atrial fibrillation with RVR, Hematuria, UTI (urinary tract infection) Disposition: ADMITTED IP TO THIS HOSP Condition: Stable
[2024-09-26 00:44] LABS: Basophils # (A) 0.09 10*3/uL (0.00-0.10); Basophils % (A) 0.8 %; Eosinophils # (A) 0.16 10*3/uL (0.04-0.35); Eosinophils % (A) 1.4 %; HCT 45.5 % (37.2-46.3); HGB 15.3 g/dL (12.0-15.0); Lymphocytes # (A) 4.39 10*3/uL (0.90-5.00); Lymphocytes % (A) 38.6 %; MCH 29.9 pg (27.0-32.0); MCHC 33.6 g/dL (32.0-37.0); MCV 88.9 fL (80.0-97.0); Mean Platelet Volume 10.8 fL (9.5-12.2); Monocytes # (A) 0.91 10*3/uL (0.20-1.00); Neutrophils # (A) 5.81 10*3/uL (1.80-7.70); Platelet Count 266 10*3/uL (140-440); RBC 5.12 10*6/uL (4.10-5.20); RDW 13.8 % (11.5-14.5); WBC 11.38 10*3/uL (4.50-10.00)
[2024-09-26] MEDS: atenoloL 25 MG TAB PO STA (00:54)
[2024-09-26] MEDS: SODIUM CHLORIDE 0.9% 1,000 ML IV STA (00:54)
[2024-09-26 00:58] LABS: ALT 14 U/L (4-34); AST 23 U/L (14-36); African American GFR (CKD) 76 (>60 ml/min/1.73 sqM); Albumin 4.4 g/dL (3.5-5.0); Alkaline Phosphatase 112 U/L (38-126); Anion Gap 10 mmol/L; Blood Urea Nitrogen 17 mg/dL (7-17); Calcium 10.1 mg/dL (8.4-10.2); Carbon Dioxide 23 mmol/L (22-30); Chloride 102 mmol/L (98-107); Glucose 105 mg/dL (74-99); Lipase 267 U/L (23-300); Magnesium 2.5 mg/dL (1.6-2.3); Non-African American GFR(CKD) 66 (>60 ml/min/1.73 sqM); Potassium 4.6 mmol/L (3.5-5.1); Sodium 135 mmol/L (137-145); Total Bilirubin 0.6 mg/dL (0.2-1.3); Total Protein 6.3 g/dL (6.3-8.2)
[2024-09-26] MEDS: DILTIAZEM 125 MG in DEXTROSE 5% IN WATER 100 ML IV SCH (01:01)
[2024-09-26] MEDS: DILTIAZEM 5 MG/ML 5 ML VIAL IVP STA ×2 (01:01→03:50)
[2024-09-26] MEDS: NA PHOS,M-B/NA PHOS,DI-BA 133 ML ENEMA RECTAL ONE (01:04)
[2024-09-26 01:20] LABS: INR 1.6 (<1.2); Partial Thromboplastin Time 28.7 sec (22.0-30.0)
[2024-09-26 04:12] LABS: Appearance,Urine Cloudy (Clear); Bacteria,Urine Rare /hpf; Bilirubin,Urine Negative (Negative); Blood,Urine Large (Negative); Color,Urine Light Red; Glucose,Urine (UA) Negative (Negative); Ketones,Urine Negative (Negative); Leukocyte Esterase,Urine Small (Negative); Mucus,Urine Rare /hpf; Nitrite,Urine Negative (Negative); Protein,Urine Trace (Negative); RBC,Urine >182 /hpf (0-5); Specific Gravity,Urine 1.013 (1.001-1.035); Squamous Epithelial Cell,Urine <1 /hpf (0-4); Urobilinogen,Urine <2.0 mg/dL (<2.0); WBC,Urine 13 /hpf (0-5)
[2024-09-26] MEDS ORDERED: ONDANSETRON 4 MG/2 ML VIAL IVP PRN (04:22)
[2024-09-26] MEDS ORDERED: ACETAMINOPHEN TAB 325 MG TAB PO PRN (04:22)
[2024-09-26] MEDS ORDERED: NALOXONE 0.4 MG/ML 1 ML VIAL IV PRN (04:22)
--- NOTE | 2024-09-26 04:27 | XR ---
EXAM: XR Chest, 2 Views CLINICAL HISTORY: ITS.REASON XR Reason: dysrhythmia TECHNIQUE: Frontal and lateral views of the chest. COMPARISON: X-ray dated 01/07/2017. FINDINGS: Lungs: Unremarkable. No consolidation. Pleural space: Unremarkable. No pneumothorax. Heart: Mild enlargement of the cardiac silhouette. Mediastinum: Unremarkable. Normal mediastinal contour. Bones/joints: Degenerative changes are seen in the spine and shoulders. No acute fracture. Vasculature: Calcifications overlie the aorta. IMPRESSION: No acute findings in the chest.
[2024-09-26] MEDS: SODIUM CHLORIDE 0.9% 1,000 ML IV SCH (06:29)
[2024-09-26 07:23] LABS: INR 1.6 (<1.2); Prothrombin Time 16.5 sec (10.0-12.5)
[2024-09-26] MEDS ORDERED: HEPARIN SODIUM 1,000 UN/ML (10ML VL) IV PRN (08:02)
[2024-09-26 09:00] LABS: Basophils # (A) 0.12 10*3/uL (0.00-0.10); Basophils % (A) 1.6 %; Eosinophils % (A) 2.7 %; HCT 47.4 % (37.2-46.3); HGB 14.5 g/dL (12.0-15.0); Lymphocytes # (A) 3.39 10*3/uL (0.90-5.00); Lymphocytes % (A) 45.4 %; MCH 29.1 pg (27.0-32.0); MCHC 30.6 g/dL (32.0-37.0); Mean Platelet Volume 10.8 fL (9.5-12.2); Monocytes # (A) 0.61 10*3/uL (0.20-1.00); Monocytes % (A) 8.2 %; Neutrophils # (A) 3.14 10*3/uL (1.80-7.70); Partial Thromboplastin Time 27.8 sec (22.0-30.0); Platelet Count 174 10*3/uL (140-440); RBC 4.99 10*6/uL (4.10-5.20); RDW 14.4 % (11.5-14.5); WBC 7.47 10*3/uL (4.50-10.00)
[2024-09-26] MEDS: polyethylene glycoL 3350 17 GM POWD.PACK PO SCH (09:20)
[2024-09-26] MEDS: FAMOTIDINE 20 MG TAB PO SCH (09:21)
[2024-09-26] MEDS: DOCUSATE 100 MG CAP PO SCH (09:21)
[2024-09-26] MEDS: SENNOSIDES 8.6 MG TAB PO SCH (09:21)
[2024-09-26] MEDS: DILTIAZEM CD 120 MG CAP.ER.24H PO SCH (09:21)
[2024-09-26] MEDS: HEPARIN SODIUM 1,000 UN/ML (10ML VL) IV ONE (09:24)
[2024-09-26] MEDS: HEPARIN SOD,PORK IN 0.45% NACL 25,000 UNIT in 0.45% NACL 1 250ML.BAG IV SCH (09:25)
--- NOTE | 2024-09-26 12:26 | P.CRDCN ---
History of Present Illness Consult date: 09/26/24 Reason for Consult (text): A fib with rvr History of present illness: This is a 79-year-old female patient last seen in [address] Bianchi with past medical history of paroxysmal atrial fibrillation, anxiety and depression. We have been asked to evaluate the patient for A-fib with RVR. Patient gives history that she came to the hospital because she was having difficulty urinating and defecating. She states that she had a Tubbs catheter placed but was having trouble with the bag and came back into the hospital only had continued trouble with the Tubbs bag and then came in a third time. While she was here on the third visit, last evening, she was found to be in A-fib with RVR. Patient has been on Coumadin and she states she thinks she has tried Eliquis in the past but it turned out to be too expensive. She states last night she also thought there was blood in her urine. Patient has been started on Cardizem drip and heart rates are still running in the 120s. INR is subtherapeutic. -EKG: Atrial fibrillation 156 bpm -Chest x-ray: No acute findings. -Laboratory studies: INR 1.6. WBC 11.3 now 7.4, hemoglobin 14.5. Troponin negative x 1. BUN 17 creatinine 0.85. -Home cardiac medications: Atenolol 100 mg at bedtime, Cardizem CD 120 mg daily, warfarin 5 mg Sunday and 2.5 mg in the other days. -Echocardiogram performed 10/04/2022 in the office revealed EF of 55%, mild concentric left ventricular hypertrophy, mild aortic regurgitation, mild to moderate mitral regurgitation, moderate tricuspid regurgitation, PASP 43 mmHg. Mild pulmonic regurgitation. Review Of Systems: At the time of my exam: CONSTITUTIONAL: Denies fever or chills. HEENT: Denies blurred vision, vision changes, or eye pain. Denies hemoptysis CARDIOVASCULAR: Denies chest pain. Denies orthopnea. Denies PND. Denies palpitations RESPIRATORY: Denies shortness of breath. GASTROINTESTINAL: Denies abdominal pain. Denies nausea or vomiting. HEMATOLOGIC: Denies bleeding disorders. GENITOURINARY: Denies any blood in urine. SKIN: Denies puritis. Denies rash. Physical examination: Gen: This is 79-year-old female in no acute distress. VS: reviewed HEENT: Head is atraumatic, normocephalic. Pupils equal, round. Sclerae is anicteric. NECK: Supple. No JVD. LUNGS: Clear to auscultation. No wheezes or rhonchi. No intercostal retr actions. HEART: Irregular rate and rhythm. No murmur. ABDOMEN: Soft No tenderness. EXTREMITIES: No pedal edema. No calf tenderness. NEUROLOGICAL: Patient is awake, alert and oriented x3. Assessment: Paroxysmal atrial fibrillation with RVR Anxiety and depression Urinary retention Hematuria Plan: Resume patient's home cardiac medications including Cardizem and atenolol Wean patient off Cardizem drip Start patient on heparin drip as INR is subtherapeutic Pharmacy is dosing Coumadin Prescription for Eliquis has been sent to [facility] pharmacy to assess for coverage. Patient has a $377 deductible but a free coupon is available. Patient does not feel that she can afford the Eliquis so she has opted to continue on Coumadin Obtain 2-D echocardiogram and Doppler study to assess cardiac structure and function Further recommendations to follow based upon clinical course Thank you kindly for this consultation. Nurse practitioner note has been reviewed, I agree with documented findings and plan of care. Patient was seen and examined. Past Medical History Past Medical History: Atrial Fibrillation Additional Past Medical History / Comment(s): depression History of Any Multi-Drug Resistant Organisms: None Reported Past Surgical History: Orthopedic Surgery Additional Past Surgical History / Comment(s): shoulder feet and wrist Past Psychological History: Anxiety, Depression Smoking Status: Never smoker Past Alcohol Use History: None Reported Past Drug Use History: None Reported Medications and Allergies Home Medications Medication Instructions Recorded Confirmed Type Apixaban [Eliquis] 5 mg PO BID #60 tab 09/26/24 Rx FLUoxetine HCL [PROzac] 20 mg PO HS 09/26/24 09/26/24 History QUEtiapine [SEROquel] 50 mg PO HS 09/26/24 09/26/24 History Warfarin Sodium 2.5 mg PO SUTUTHSA 09/26/24 09/26/24 History Warfarin Sodium 5 mg PO MOWEFR 09/26/24 09/26/24 History atenoloL [Tenormin] 100 mg PO HS 09/26/24 09/26/24 History dilTIAZem HCL [Cardizem CD] 120 mg PO DAILY 09/26/24 09/26/24 History lamoTRIgine [LaMICtal] 300 mg PO HS 09/26/24 09/26/24 History Allergies Allergy/AdvReac Type Severity Reaction Status Date / Time No Known Allergies Allergy Verified 09/26/24 07:59 Physical Exam Vitals: Vital Signs Temp Pulse Resp BP Pulse Ox 09/26/24 07:46 102 H 18 149/117 96 09/26/24 06:37 98.4 F 111 H 17 127/97 97 09/26/24 04:08 98 17 116/80 97 09/26/24 01:00 124 H 17 114/102 94 L 09/25/24 21:57 98.4 F 136 H 18 113/88 98 Intake and Output 09/25/24 09/26/24 09/26/24 22:59 06:59 14:59 Other: Weight 72.575 kg Results 09/26/24 06:48 09/26/24 00:10 Cardiac Enzymes 09/26/24 09/26/24 Range/Units 00:10 00:10 AST 23 (14-36) U/L Troponin I <0.012 (0.000-0.034) ng/mL Coagulation 09/26/24 09/26/24 Range/Units 00:10 06:48 PT 17.0 H 16.5 H (10.0-12.5) sec APTT 28.7 (22.0-30.0) sec CBC 09/26/24 Range/Units 00:10 WBC 11.38 H (4.50-10.00) 10*3/uL RBC 5.12 (4.10-5.20) 10*6/uL Hgb 15.3 H (12.0-15.0) g/dL Hct 45.5 (37.2-46.3) % Plt Count 266 (140-440) 10*3/uL Comprehensive Metabolic Panel 09/26/24 Range/Units 00:10 Sodium 135 L (137-145) mmol/L Potassium 4.6 (3.5-5.1) mmol/L Chloride 102 (98-107) mmol/L Carbon Dioxide 23 (22-30) mmol/L BUN 17 (7-17) mg/dL Creatinine 0.85 (0.52-1.04) mg/dL Glucose 105 H (74-99) mg/dL Calcium 10.1 (8.4-10.2) mg/dL AST 23 (14-36) U/L ALT 14 (4-34) U/L Alkaline Phosphatase 112 (38-126) U/L Total Protein 6.3 (6.3-8.2) g/dL Albumin 4.4 (3.5-5.0) g/dL Current Medications Generic Name Dose Route Start Last Admin Trade Name Freq PRN Reason Stop Dose Admin Acetaminophen 650 mg 09/26/24 04:22 Acetaminophen Tab 325 Mg Tab PO Q6HR PRN Mild Pain or Fever > 100.5 Docusate Sodium 100 mg 09/26/24 09:00 Docusate 100 Mg Cap PO BID BEATRIZ Famotidine 20 mg 09/26/24 09:00 Famotidine 20 Mg Tab PO BID BEATRIZ Diltiazem HCl 125 mg/ Dextrose 125 mls @ 5 mls/hr 09/26/24 00:45 09/26/24 01:01 /Water IV 5 mg/hr .Q24H BEATRIZ 5 mls/hr Administration Protocol 5 MG/HR Sodium Chloride 1,000 mls @ 75 mls/hr 09/26/24 04:30 09/26/24 06:29 Saline 0.9% IV 75 mls/hr .[id number] BEATRIZ Administration Miscellaneous Information 1 each 09/26/24 02:00 Warfarin Per Pharmacy MISCELLANE DIRECTED PRN Per Protocol Naloxone HCl 0.2 mg 09/26/24 04:22 Naloxone 0.4 Mg/Ml 1 Ml Vial IV Q2M PRN Opioid Reversal Ondansetron HCl 4 mg 09/26/24 04:22 Ondansetron 4 Mg/2 Ml Vial IVP Q8HR PRN Nausea And Vomiting Polyethylene Glycol 17 gm 09/26/24 09:00 Polyethylene Glycol 3350 17 Gm Powd.Pack PO DAILY BEATRIZ Senna 8.6 mg 09/26/24 09:00 Sennosides 8.6 Mg Tab PO BID BEATRIZ Intake and Output 09/25/24 09/26/24 09/26/24 22:59 06:59 14:59 Other: Weight 72.575 kg 09/26/24 00:10 09/26/24 00:10
[2024-09-26] MEDS: atenoloL 50 MG TAB PO SCH (12:29)
--- NOTE | 2024-09-26 18:25 | P.HPIM ---
History of Present Illness H&P Date: 09/26/24 Chief Complaint: Difficulty urination and bowels Very pleasant 79-year-old patient follows Dr. Rojelio Hernandez. Patient is accompanied by her in the ER. Patient came in because she was having trouble making urine. Also not had a bowel movement for 3 to 4 days. Was having discomfort of the abdomen. Has decided to come in. In the ER patient is found to be in atrial fibrillation with rapid ventricular rate. About 156/min. Patient was placed on IV heparin and IV Cardizem. Patient denied any chest pain or shortness of breath. Except for the discomfort with GI urine symptoms. Tubbs catheter was placed in the ER. Patient also to bowel movement today. did tell me that patient been having dark bowel movements. For last few days. Review of systems: GEN.: Tired EYES: None HEENT: None NECK: None RESPIRATORY: None CARDIOVASCULAR: As above] GASTROINTESTINAL: As above] GENITOURINARY: None MUSCULOSKELETAL: Some joint pains] LYMPHATICS: None HEMATOLOGICAL: None PSYCHIATRY: None NEUROLOGICAL: None Social history: Lives with her . Denies any smoking or alcohol Physical examination: VITAL SIGNS: 98.4, 136, 18, 113/88, 98% room air upon presentation GENERAL: BMI 26.6, reclining bed awake not in distress. EYES: Pupils equal. Conjunctiva tommy l. HEENT: External appearance of nose and ears normal, oral cavity grossly normal. NECK: JVD not raised; masses not palpable. HEART: Heart sounds are regular no edema. LUNGS: Respiratory rate normal; clear to auscultation. ABDOMEN: Soft, nontender, liver spleen not palpable, no masses palpable. PSYCH: Alert and oriented x3; mood and affect tommy l. MUSCULOSKELETAL:No Clubbing/cyanosis;muscles-grossly intact. OA NEUROLOGICAL: Cranial nerves grossly intact; no facial asymmetry, power and sensation grossly intact. LYMPHATICS: No lymph nodes palpable in the axilla and neck INVESTIGATIONS, reviewed in the clinical context: October 04, 2024: White count 7.4 hemoglobin 14.5 platelets 174 Sodium 135 potassium 4.6 creatinine 0.85 Troponin I less than 0.012 Chest x-ray film personally reviewed by me-borderline cardiomegaly EKG tracing personally reviewed by me-atrial fibrillation. Rate 156 Assessment plan - Chronic atrial fibrillation, now presenting with a rapid ventricular rate. Patient did not present with any cardiac symptoms. IV heparin. IV Cardizem drip. Cardiology consulted. Hold Coumadin 2D echocardiogram - Black stools reported by the . Last few days. Patient normally has a bowel movement every 3 to 4 days. In view of the above we will hold off the heparin. General surgery is consulted. In case he will have to do colonoscopy to if he find a tumor mass etc that may be bleeding. Clear liquid diet. General Surgery consulted - Depression Prozac. Seroquel Given history of dark stools. Stop patient's IV heparin. Hold Coumadin. Gen eral surgery consult was reviewed to colonoscopy. Has been rather concerned about the same. Follow-up with cardiology. General surgery. - Past Medical History Past Medical History: Atrial Fibrillation Additional Past Medical History / Comment(s): depression History of Any Multi-Drug Resistant Organisms: None Reported Past Surgical History: Orthopedic Surgery Additional Past Surgical History / Comment(s): shoulder feet and wrist Past Psychological History: Anxiety, Depression Smoking Status: Never smoker Past Alcohol Use History: None Reported Past Drug Use History: None Reported Medications and Allergies Home Medications Medication Instructions Recorded Confirmed Type Apixaban [Eliquis] 5 mg PO BID #60 tab 09/26/24 Rx FLUoxetine HCL [PROzac] 20 mg PO HS 09/26/24 09/26/24 History QUEtiapine [SEROquel] 50 mg PO HS 09/26/24 09/26/24 History Warfarin Sodium 2.5 mg PO SUTUTHSA 09/26/24 09/26/24 History Warfarin Sodium 5 mg PO MOWEFR 09/26/24 09/26/24 History atenoloL [Tenormin] 100 mg PO HS 09/26/24 09/26/24 History dilTIAZem HCL [Cardizem CD] 120 mg PO DAILY 09/26/24 09/26/24 History lamoTRIgine [LaMICtal] 300 mg PO HS 09/26/24 09/26/24 History Allergies Allergy/AdvReac Type Severity Reaction Status Date / Time No Known Allergies Allergy Verified 09/26/24 07:59 Physical Exam Vitals: Vital Signs Temp Pulse Resp BP Pulse Ox 09/26/24 07:46 102 H 18 149/117 96 09/26/24 06:37 98.4 F 111 H 17 127/97 97 09/26/24 04:08 98 17 116/80 97 09/26/24 01:00 124 H 17 114/102 94 L 09/25/24 21:57 98.4 F 136 H 18 113/88 98 Intake and Output 09/25/24 09/26/24 09/26/24 22:59 06:59 14:59 Other: Weight 72.575 kg Results CBC & Chem 7: 09/26/24 06:48 09/26/24 00:10 Labs: Abnormal Lab Results - Last 24 Hours (Table) 09/26/24 09/26/24 09/26/24 Range/Units 00:10 00:10 00:10 WBC 11.38 H (4.50-10.00) 10*3/uL Hgb 15.3 H (12.0-15.0) g/dL Hct (37.2-46.3) % MCHC (32.0-37.0) g/dL Basophils # (0.00-0.10) 10*3/uL PT 17.0 H (10.0-12.5) sec INR 1.6 H (<1.2) Sodium 135 L (137-145) mmol/L Glucose 105 H (74-99) mg/dL Magnesium 2.5 H (1.6-2.3) mg/dL Urine Appearance (Clear) Urine Protein (Negative) Urine Blood (Negative) Ur Leukocyte Esterase (Negative) Urine RBC (0-5) /hpf Urine WBC (0-5) /hpf Urine Bacteria (None) /hpf Urine Mucus (None) /hpf 09/26/24 09/26/24 09/26/24 Range/Units 03:51 06:48 06:48 WBC (4.50-10.00) 10*3/uL Hgb (12.0-15.0) g/dL Hct 47.4 H (37.2-46.3) % MCHC 30.6 L (32.0-37.0) g/dL Basophils # 0.12 H (0.00-0.10) 10*3/uL PT 16.5 H (10.0-12.5) sec INR 1.6 H (<1.2) Sodium (137-145) mmol/L Glucose (74-99) mg/dL Magnesium (1.6-2.3) mg/dL Urine Appearance Cloudy H (Clear) Urine Protein Trace H (Negative) Urine Blood Large H (Negative) Ur Leukocyte Esterase Small H (Negative) Urine RBC >182 H (0-5) /hpf Urine WBC 13 H (0-5) /hpf Urine Bacteria Rare H (None) /hpf Urine Mucus Rare H (None) /hpf
[2024-09-26] MEDS: WARFARIN 5 MG TAB PO ONE (18:33)
--- NOTE | 2024-09-26 18:36 | P.CON ---
Consult Note - . Consult date: 09/26/24 Assessment/Plan:: Patient is a 79 year old female with atrial fibrillation on coumadin presented to [facility] ED with hematuria. Patient had presented to the [facility] ER two days ago due to constipation and difficulty urinating. She was given milk of magnesia and a Tubbs catheter was placed. She presented back to the [facility] ER due to difficulty with her Tubbs bag and getting it to stay in place. She also noticed blood in her urine. She endorsed suprapubic pressure. She states she has been able to have a small bowel movement since taking milk of magnesia. However, apparently she states her stool is "black". She currently denies chest pain, shortness of breath, palpitations or dizziness. Denies fevers or chills, nausea or vomiting. Denies diarrhea, does note having darker stools recently. Denies flank pain. Denies trauma. On arrival to the ER, patient was found to be in A-fib with RVR. General surgery was consulted for patients dark stools and concern for GI bleed. Review of Systems ROS Other: All systems not noted in ROS Statement are negative. Past Medical History Past Medical History: Atrial Fibrillation Additional Past Medical History / Comment(s): depression History of Any Multi-Drug Resistant Organisms: None Reported Past Surgical History: Orthopedic Surgery Additional Past Surgical History / Comment(s): shoulder feet and wrist Past Psychological History: Anxiety, Depression Smoking Status: Never smoker Past Alcohol Use History: None Reported Past Drug Use History: None Reported Physical Exam CONSTITUTIONAL: No apparent distress, well appearing SKIN: Warm, dry, no jaundice, hives or petechiae EYES: Pupils are equally round, extraocular movements intact without nystagmus, clear conjunctiva, non-icteric sclera HENT: Normocephalic, atraumatic, moist mucus membranes, oropharynx clear without exudates NECK: , Full range of motion, normal appearance PULMONARY: Clear to auscultation without wheezes, rhonchi, or rales, normal excursion, no accessory muscle use and no stridor CARDIOVASCULAR: Tachycardia, irregularly irregular rate and rhythm, normal S1 and S2. No appreciated murmurs, however exam is limited due to A-fib with RVR, strong radial pulses with intact distal perfusion. No lower extremity edema GASTROINTESTINAL: Soft, active bowel sounds throughout, non-tender, non- distended, no palpable masses, no rebound or guarding. No hepatosplenomegaly, no CVA tenderness GENITOURINARY: MUSCULOSKELETAL: Extremities have no gross deformity, no edema, redness, or swelling. NEUROLOGIC:_a/o x 3, GCS 15, normal mentation and speech. Moves all extremities x 4 without motor or sensory deficit PSYCHIATRIC:_normal mood and affect, thought process is clear and linear 79 year old female in A-Fib with RVR with dark stools and concern for GI Bleed -At this time, the patients hemoglobin remains stable. She states she has had very small bowel movements but they were dark. Will repeat CBC now and again in AM. Continue Clear Liquid Diet. No acute intervention at this time however will follow closely should patient need endoscopic intervention. Ok to continue Heparin gtt per General Surgery. Cardiology Recs. Pavel Morales DO [facility] [phone]
[2024-09-26 18:49] LABS: Basophils % (A) 1.4 %; Eosinophils # (A) 0.34 10*3/uL (0.04-0.35); Eosinophils % (A) 4.9 %; HCT 44.1 % (37.2-46.3); HGB 14.2 g/dL (12.0-15.0); Lymphocytes # (A) 3.15 10*3/uL (0.90-5.00); Lymphocytes % (A) 45.1 %; MCH 29.5 pg (27.0-32.0); MCHC 32.2 g/dL (32.0-37.0); MCV 91.5 fL (80.0-97.0); Mean Platelet Volume 10.4 fL (9.5-12.2); Monocytes # (A) 0.51 10*3/uL (0.20-1.00); Monocytes % (A) 7.3 %; Neutrophils # (A) 2.87 10*3/uL (1.80-7.70); Neutrophils % (A) 41.2 %; Platelet Count 192 10*3/uL (140-440); RBC 4.82 10*6/uL (4.10-5.20); WBC 6.98 10*3/uL (4.50-10.00)
--- NOTE | 2024-09-26 18:54 | CA ---
Transthoracic Echo Report Name: Genesis Vizcarra Age: 79 Gender: F : 1945 Exam Date: 09/26/2024 13:37 Exam Location: [place] Echo Ht (in): 65 Wt (lb): 160 Ordering Physician: Sharee Gao Attending/Referring Phys: [id number], [place] Capsule Inspector Rhonda Lentz RDCS Procedure CPT: Indications: LVF, afib rvr Cardiac Hx: Technical Quality: Fair Contrast 1: Total Dose (mL): Contrast 2: Total Dose (mL): MEASUREMENTS (Male / Female) Normal Values 2D ECHO LV Diastolic Diameter PLAX 3.6 cm 4.2 - 5.9 / 3.9 - 5.3 cm LV Systolic Diameter PLAX 1.8 cm IVS Diastolic Thickness 1.0 cm 0.6 - 1.0 / 0.6 - 0.9 cm LVPW Diastolic Thickness 1.0 cm 0.6 - 1.0 / 0.6 - 0.9 cm LV Relative Wall Thickness 0.6 RV Internal Dim ED PLAX 2.5 cm LVOT Diameter 2.0 cm LA Systolic Diameter LX 4.7 cm 3.0 - 4.0 / 2.7 - 3.8 cm LV Diastolic Volume MOD 4C 39.0 cm??? LV Systolic Volume MOD 4C 13.5 cm??? LV Ejection Fraction MOD 4C 65.4 % LV Cardiac Index MOD 4C 1357.2 cm???/min???m??? LV Diastolic Length 4C 6.5 cm LV Systolic Length 4C 5.5 cm M-MODE Aortic Root Diameter MM 3.3 cm LA Systolic Diameter MM 4.1 cm LA Ao Ratio MM 1.3 AV Cusp Separation MM 1.5 cm DOPPLER AV Peak Velocity 109.8 cm/s AV Peak Gradient 4.8 mmHg AV Mean Velocity 73.8 cm/s AV Mean Gradient 2.4 mmHg AV Velocity Time Integral 20.2 cm AI Peak Velocity 212.2 cm/s AI Peak Gradient 18.0 mmHg AI Pressure Half Time 902.9 ms LVOT Peak Velocity 82.8 cm/s LVOT Peak Gradient 2.7 mmHg LVOT Velocity Time Integral 14.5 cm LVOT Stroke Volume 45.8 cm??? LVOT Stroke Volume Index 25.4 ml/m??? LVOT Cardiac Index 2437.3 cm???/min???m??? AV Area Cont Eq vti 2.3 cm??? AV Area Cont Eq pk 2.4 cm??? MV Peak Velocity 156.2 cm/s MV Peak Gradient 9.8 mmHg MV Mean Velocity 92.5 cm/s MV Mean Gradient 4.3 mmHg MV Velocity Time Integral 26.9 cm MV Area PHT 2.5 cm??? Mitral E Point Velocity 155.9 cm/s Mitral A Point Velocity 0.0 cm/s Mitral E to A Ratio 58983.3 MV Deceleration Time 304.5 ms TR Peak Velocity 221.5 cm/s TR Peak Gradient 19.6 mmHg FINDINGS Left Ventricle Left ventricular ejection fraction is estimated at 55-60%. Mildly increased septal wall thickness. Normal left ventricular systolic function with no obvious regional wall motion abnormalities. Right Ventricle Normal right ventricular size and function. Right ventricular systolic pressure within normal limits. Right Atrium Severe right atrial dilatation. Left Atrium Severely increased left atrial diameter. Mitral Valve Mitral stenosis. Moderate mitral regurgitation. Mitral valve thickened. Mitral annular calcification. Aortic Valve Trileaflet aortic valve. Diffuse thickening (sclerosis) of the aortic valve cusps without reduced excursion. Mild aortic regurgitation. Tricuspid Valve Structurally normal tricuspid valve. Mild tricuspid regurgitation. No tricuspid stenosis. Pulmonic Valve Structurally normal pulmonic valve. Trace pulmonic regurgitation. No pulmonic stenosis. Pericardium No pericardial or pleural effusion. Aorta Normal size aortic root and proximal ascending aorta. CONCLUSIONS Normal LV systolic function Aortic sclerosis with mild aortic insufficiency Moderate mitral regurgitation Previewed by: Dr. Carlos Aldridge MD (Electronically Signed) Final Date: 26 September 2024 18:53
[2024-09-26] MEDS ORDERED: atenoloL 50 MG TAB PO SCH (21:00)
[2024-09-26] MEDS: QUEtiapine 50 MG TAB PO SCH (22:26)
[2024-09-26] MEDS: FLUoxetine HCL 20 MG CAP PO SCH (22:27)
[2024-09-26] MEDS: lamoTRIgine 100 MG TAB PO SCH (22:27)
[2024-09-27 07:05] LABS: Basophils # (A) 0.06 10*3/uL (0.00-0.10); Eosinophils # (A) 0.32 10*3/uL (0.04-0.35); Eosinophils % (A) 5.3 %; HCT 41.8 % (37.2-46.3); HGB 13.3 g/dL (12.0-15.0); Lymphocytes # (A) 2.33 10*3/uL (0.90-5.00); Lymphocytes % (A) 38.3 %; MCH 29.4 pg (27.0-32.0); MCHC 31.8 g/dL (32.0-37.0); MCV 92.3 fL (80.0-97.0); Mean Platelet Volume 10.1 fL (9.5-12.2); Monocytes # (A) 0.51 10*3/uL (0.20-1.00); Monocytes % (A) 8.4 %; Neutrophils # (A) 2.86 10*3/uL (1.80-7.70); Neutrophils % (A) 46.8 %; Platelet Count 198 10*3/uL (140-440); RBC 4.53 10*6/uL (4.10-5.20); RDW 14.3 % (11.5-14.5); WBC 6.09 10*3/uL (4.50-10.00)
[2024-09-27 07:25] LABS: INR 1.3 (<1.2); Prothrombin Time 13.4 sec (10.0-12.5)
[2024-09-27] MEDS: FAMOTIDINE 20 MG TAB PO SCH (08:15)
--- NOTE | 2024-09-27 11:41 | P.PN ---
Progress Note - Text Progress Note Date: 09/27/24 No acute events overnight. Vital signs are stable. VSS General-NAD CVS-RRR Lungs-NLB Abdomen-soft, NTND Ext- no edema 79 year old female in A-Fib with RVR with dark stools and concern for GI Bleed -At this time, the patients hemoglobin remains stable 13.3(14.2). Ok to advance diet as tolerated. No acute intervention at this time however will follow closely should patient need endoscopic intervention. Otherwise will plan for outpatient endoscopy. Ok to continue Heparin gtt per General Surgery. Cardiology Recs. Pavel Morales [facility] [phone]
--- NOTE | 2024-09-27 17:19 | P.PN ---
Subjective Progress Note Date: 09/27/24 This is a 79-year-old female patient last seen in [address] Bianchi with past medical history of paroxysmal atrial fibrillation, anxiety and depression. We have been asked to evaluate the patient for A-fib with RVR. Patient gives history that she came to the hospital because she was having difficulty urinating and defecating. She states that she had a Tubbs catheter placed but was having trouble with the bag and came back into the hospital only had continued trouble with the Tubbs bag and then came in a third time. While she was here on the third visit, last evening, she was found to be in A-fib with RVR. Patient has been on Coumadin and she states she thinks she has tried Eliquis in the past but it turned out to be too expensive. She states last night she also thought there was blood in her urine. Patient has been started on Cardizem drip and heart rates are still running in the 120s. INR is subtherapeutic. -EKG: Atrial fibrillation 156 bpm -Chest x-ray: No acute findings. -Laboratory studies: INR 1.6. WBC 11.3 now 7.4, hemoglobin 14.5. Troponin negative x 1. BUN 17 creatinine 0.85. -Home cardiac medications: Atenolol 100 mg at bedtime, Cardizem CD 120 mg daily, warfarin 5 mg Sunday and 2.5 mg in the other days. -Echocardiogram performed 10/04/2022 in the office revealed EF of 55%, mild concentric left ventricular hypertrophy, mild aortic regurgitation, mild to moderate mitral regurgitation, moderate tricuspid regurgitation, PASP 43 mmHg. Mild pulmonic regurgitation. Progress note 09/27/2024, BP 135/95, heart rate 88, telemetry shows rate controlled atrial fibrillation Hemoglobin stable, no further reported hematuria, heparin drip has been disco ntinued. Physical examination: Gen: This is 79-year-old female in no acute distress. VS: reviewed HEENT: Head is atraumatic, normocephalic. Pupils equal, round. Sclerae is anicteric. NECK: Supple. No JVD. LUNGS: Clear to auscultation. No wheezes or rhonchi. No intercostal retractions. HEART: Irregular rate and rhythm. No murmur. ABDOMEN: Soft No tenderness. EXTREMITIES: No pedal edema. No calf tenderness. NEUROLOGICAL: Patient is awake, alert and oriented x3. Assessment: Paroxysmal atrial fibrillation with RVR Anxiety and depression Urinary retention Hematuria Concerns of black tarry stool Moderate MR moderate TR Plan: Discontinue heparin, start warfarin. Monitor INR. Goal INR 2-3. Talk to patient if Pradaxa is reasonable. $60 per month. She is on atenolol 100 mg Cardizem 120 mg daily at home. She is currently on same regimen and is rate controlled. Consider Protonix for concerns of GI bleeding. Hemoglobin stable. Recommended outpatient endoscopy by surgery team At this time patient is cleared from cardiovascular standpoint. Recommend outpatient follow-up with Dr. Bianchi Objective - Vital Signs Vital signs: Vital Signs Temp 97.7 F 09/27/24 11:35 Pulse 88 09/27/24 16:00 Resp 18 09/27/24 16:00 BP 135/95 09/27/24 16:00 Pulse Ox 96 09/27/24 16:00 FiO2 Intake & Output 09/26/24 09/27/24 09/27/24 18:59 06:59 18:59 Intake Total 75.188 101.667 62.167 Balance 75.188 101.667 62.167 Weight 72.575 kg 68.5 kg Intake: Intake, IV Titration 75.188 101.667 62.167 Amount Diltiazem 125 mg In 101.667 62.167 Dextrose 5% in Water 100 ml @ 5 MG/HR 5 mls/hr IV .Q24H BEATRIZ Rx#:[id number] Heparin Sod,Pork in 0.45% 75.188 NaCl 25,000 unit In 0.45 % NaCl 1 250ml.bag @ 12 UNITS/KG/HR 8.709 mls/hr IV .Q24H BEATRIZ Rx#: [id number] Other: Voiding Method Bedside Commode Bedside Commode # Voids 2 2 # Bowel Movements 2 - Labs CBC & Chem 7: 09/27/24 06:33 09/26/24 00:10 Labs: Abnormal Lab Results - Last 24 Hours (Table) 09/27/24 09/27/24 Range/Units 06:33 06:33 MCHC 31.8 L (32.0-37.0) g/dL PT 13.4 H (10.0-12.5) sec INR 1.3 H (<1.2) Microbiology - Last 24 Hours (Table) 09/26/24 03:51 Urine Culture - Preliminary Urine,Voided Gram Neg Bacilli
[2024-09-27 18:16] LABS: NT-Pro-B-Type Natriuretic Pept 2350 pg/mL
[2024-09-27] MEDS: WARFARIN 5 MG TAB PO ONE (18:35)
[2024-09-28 01:45] LABS: Chol/HDL Ratio 3.53 Ratio; LDL Cholesterol,Calculated 105.6 mg/dL (0.0-131.0)
[2024-09-28 07:08] LABS: INR 1.1 (<1.2); Prothrombin Time 12.3 sec (10.0-12.5)
[2024-09-28 07:11] LABS: African American GFR (CKD) 79 (>60 ml/min/1.73 sqM); Anion Gap 11 mmol/L; Blood Urea Nitrogen 7 mg/dL (7-17); Calcium 9.5 mg/dL (8.4-10.2); Carbon Dioxide 22 mmol/L (22-30); Chloride 105 mmol/L (98-107); Glucose 89 mg/dL (74-99); Non-African American GFR(CKD) 69 (>60 ml/min/1.73 sqM); Potassium 4.3 mmol/L (3.5-5.1); Sodium 138 mmol/L (137-145)
[2024-09-28 08:35] LABS: Basophils # (A) 0.05 10*3/uL (0.00-0.10); Basophils % (A) 0.8 %; Eosinophils # (A) 0.32 10*3/uL (0.04-0.35); HCT 45.2 % (37.2-46.3); HGB 14.4 g/dL (12.0-15.0); Lymphocytes # (A) 2.39 10*3/uL (0.90-5.00); Lymphocytes % (A) 37.5 %; MCH 29.1 pg (27.0-32.0); MCHC 31.9 g/dL (32.0-37.0); MCV 91.5 fL (80.0-97.0); Mean Platelet Volume 10.6 fL (9.5-12.2); Monocytes # (A) 0.56 10*3/uL (0.20-1.00); Monocytes % (A) 8.8 %; Neutrophils # (A) 3.04 10*3/uL (1.80-7.70); Neutrophils % (A) 47.6 %; Platelet Count 190 10*3/uL (140-440); RBC 4.94 10*6/uL (4.10-5.20); WBC 6.38 10*3/uL (4.50-10.00)
--- NOTE | 2024-09-28 13:21 | P.PN ---
Progress Note - Text Progress Note Date: 09/28/24 No acute events overnight. Vital signs are stable. VSS General-NAD CVS-RRR Lungs-NLB Abdomen-soft, NTND Ext- no edema 79 year old female in A-Fib with RVR with dark stools and concern for GI Bleed -At this time, the patients hemoglobin remains stable. Ok for Regular Diet from Surgery standpoint. No acute intervention at this time however will follow closely should patient need endoscopic intervention. Otherwise will plan for outpatient endoscopy. Ok to continue Heparin gtt/Anticoagulation per Cardiology Recs. Pavel Morales DO [facility] [phone]
--- NOTE | 2024-09-28 14:29 | P.PN ---
Subjective Progress Note Date: 09/27/24 Very pleasant 79-year-old patient follows Dr. Rojelio Hernandez. Patient is accompanied by her in the ER. Patient came in because she was having trouble making urine. Also not had a bowel movement for 3 to 4 days. Was having discomfort of the abdomen. Has decided to come in. In the ER jose carlos loja is found to be in atrial fibrillation with rapid ventricular rate. About 156/min. Patient was placed on IV heparin and IV Cardizem. Patient denied any chest pain or shortness of breath. Except for the discomfort with GI urine symptoms. Tubbs catheter was placed in the ER. Patient also to bowel movement today. did tell me that patient been having dark bowel movements. For last few days. 09/27/2024 Patient is resting in the bed. Awake alert and oriented x 3. No complaints of chest pain or shortness of breath. Denied any dark stools today. No complaints of abdominal pain. No nausea or vomiting he tolerated oral diet. Coumadin is on hold for possible GI bleed. Heart rate is controlled. Laboratory data showed WBC 6.0 hemoglobin 13.3 and platelets 198 INR 1.3 proBNP 2350 LDL 105.6. Cardiology and general surgery is on board. Review of systems: GEN.: Tired EYES: None HEENT: None NECK: None RESPIRATORY: None CARDIOVASCULAR: As above] GASTROINTESTINAL: As above] GENITOURINARY: None MUSCULOSKELETAL: Some joint pains] LYMPHATICS: None HEMATOLOGICAL: None PSYCHIATRY: None NEUROLOGICAL: None Social history: Lives with her . Denies any smoking or alcohol Physical examination: VITAL SIGNS: 98.4, 136, 18, 113/88, 98% room air upon presentation GENERAL: BMI 26.6, reclining bed awake not in distress. EYES: Pupils equal. Conjunctiva tommy l. HEENT: External appearance of nose and ears normal, oral cavity grossly normal. NECK: JVD not raised; masses not palpable. HEART: Heart sounds are regular no edema. LUNGS: Respiratory rate normal; clear to auscultation. ABDOMEN: Soft, nontender, liver spleen not palpable, no masses palpable. PSYCH: Alert and oriented x3; mood and affect tommy l. MUSCULOSKELETAL:No Clubbing/cyanosis;muscles-grossly intact. OA NEUROLOGICAL: Cranial nerves grossly intact; no facial asymmetry, power and sensation grossly intact. LYMPHATICS: No lymph nodes palpable in the axilla and neck INVESTIGATIONS, reviewed in the clinical context: October 04, 2024: White count 7.4 hemoglobin 14.5 platelets 174 Sodium 135 potassium 4.6 creatinine 0.85 Troponin I less than 0.012 Chest x-ray film personally reviewed by me-borderline cardiomegaly EKG tracing personally reviewed by me-atrial fibrillation. Rate 156 Assessment plan - Chronic atrial fibrillation, now presenting with a rapid ventricular rate. Patient did not present with any cardiac symptoms. Cardizem drip discontinued. Patient will be continued on Cardizem CD1 20 mg p.o. daily. Hold Coumadin 2D echocardiogram - Black stools reported by the . Last few days. Patient normally has a bowel movement every 3 to 4 days. In view of the above we will hold off the heparin. General surgery is consulted. In case he will have to do colonoscopy to if he find a tumor mass etc that may be bleeding. Clear liquid diet. General Surgery is following. Hemoglobin is stable. Possible urinary tract infection. Continue with ceftriaxone follow-up urine cu lture report. Urine culture showed gram-negative bacilli. - Depression Prozac. Seroquel Objective - Vital Signs Vital signs: Vital Signs Temp 97.7 F 09/27/24 11:35 Pulse 74 09/27/24 11:35 Resp 16 09/27/24 11:35 BP 139/86 09/27/24 11:35 Pulse Ox 98 09/27/24 11:35 FiO2 Intake & Output 09/26/24 09/27/24 09/27/24 18:59 06:59 18:59 Intake Total 75.188 101.667 62.167 Balance 75.188 101.667 62.167 Weight 72.575 kg 68.5 kg Intake: Intake, IV Titration 75.188 101.667 62.167 Amount Diltiazem 125 mg In 101.667 62.167 Dextrose 5% in Water 100 ml @ 5 MG/HR 5 mls/hr IV .Q24H [facility] Rx#:[id number] Heparin Sod,Pork in 0.45% 75.188 NaCl 25,000 unit In 0.45 % NaCl 1 250ml.bag @ 12 UNITS/KG/HR 8.709 mls/hr IV .Q24H [facility] Rx#: [id number] Other: Voiding Method Bedside Commode Bedside Commode # Voids 2 2 # Bowel Movements 2 - Labs CBC & Chem 7: 09/28/24 05:38 09/28/24 05:38 Labs: Abnormal Lab Results - Last 24 Hours (Table) 09/27/24 09/27/24 Range/Units 06:33 06:33 MCHC 31.8 L (32.0-37.0) g/dL PT 13.4 H (10.0-12.5) sec INR 1.3 H (<1.2) Microbiology - Last 24 Hours (Table) 09/26/24 03:51 Urine Culture - Preliminary Urine,Voided Gram Neg Bacilli
[2024-09-28] MEDS: PANTOPRAZOLE 40 MG TABLET PO SCH (15:45)
[2024-09-28] MEDS: WARFARIN 3 MG TAB PO ONE (17:24)
--- NOTE | 2024-09-28 22:03 | P.PN ---
Subjective Progress Note Date: 09/28/24 Very pleasant 79-year-old patient follows Dr. Rojelio Hernandez. Patient is accompanied by her in the ER. Patient came in because she was having trouble making urine. Also not had a bowel movement for 3 to 4 days. Was having discomfort of the abdomen. Has decided to come in. In the ER jose carlos loja is found to be in atrial fibrillation with rapid ventricular rate. About 156/min. Patient was placed on IV heparin and IV Cardizem. Patient denied any chest pain or shortness of breath. Except for the discomfort with GI urine symptoms. Tubbs catheter was placed in the ER. Patient also to bowel movement today. did tell me that patient been having dark bowel movements. For last few days. 09/27/2024 Patient is resting in the bed. Awake alert and oriented x 3. No complaints of chest pain or shortness of breath. Denied any dark stools today. No complaints of abdominal pain. No nausea or vomiting he tolerated oral diet. Coumadin is on hold for possible GI bleed. Heart rate is controlled. Laboratory data showed WBC 6.0 hemoglobin 13.3 and platelets 198 INR 1.3 proBNP 2350 LDL 105.6. Cardiology and general surgery is on board. 09/28/2024 Patient is resting in bed. Awake alert and oriented x 3. Denied any complaints of dark stools. FOBT negative. Hemoglobin is fairly stable. Patient was started back on warfarin. But INR level is 1.1. Planning to change anticoagulation to Eliquis. Prescription for Eliquis was sent to pharmacy. Otherwise urine culture showed gram-negative bacilli. Laboratory data showed WBC 6.3 hemoglobin 14.4 and platelets 190, sodium 138 potassium 4.3 chloride 105 bicarb is 22 BUN 7 and creatinine 0.82 and blood sugar 89. Calcium 9.5. Dissipate discharge in the next 24 hours. Review of systems: GEN.: Tired EYES: None HEENT: None NECK: None RESPIRATORY: None CARDIOVASCULAR: As above] GASTROINTESTINAL: As above] GENITOURINARY: None MUSCULOSKELETAL: Some joint pains] LYMPHATICS: None HEMATOLOGICAL: None PSYCHIATRY: None NEUROLOGICAL: None Social history: Lives with her . Denies any smoking or alcohol Physical examination: VITAL SIGNS: 98.4, 136, 18, 113/88, 98% room air upon presentation GENERAL: BMI 26.6, reclining bed awake not in distress. EYES: Pupils equal. Conjunctiva tommy l. HEENT: External appearance of nose and ears normal, oral cavity grossly normal. NECK: JVD not raised; masses not palpable. HEART: Heart sounds are regular no edema. LUNGS: Respiratory rate normal; clear to auscultation. ABDOMEN: Soft, nontender, liver spleen not palpable, no masses palpable. PSYCH: Alert and oriented x3; mood and affect tommy l. MUSCULOSKELETAL:No Clubbing/cyanosis;muscles-grossly intact. OA NEUROLOGICAL: Cranial nerves grossly intact; no facial asymmetry, power and sensation grossly intact. LYMPHATICS: No lymph nodes palpable in the axilla and neck INVESTIGATIONS, reviewed in the clinical context: October 04, 2024: White count 7.4 hemoglobin 14.5 platelets 174 Sodium 135 potassium 4.6 creatinine 0.85 Troponin I less than 0.012 Chest x-ray film personally reviewed by me-borderline cardiomegaly EKG tracing personally reviewed by me-atrial fibrillation. Rate 156 Assessment plan - Chronic atrial fibrillation, now presenting with a rapid ventricular rate. Patient did not present with any cardiac symptoms. Cardizem drip discontinued. Patient will be continued on Cardizem CD1 20 mg p. o. daily. 2D echocardiogram showed normal EF. Aortic sclerosis with mild aortic insufficiency. Moderate MR. Patient was started back on Coumadin. INR 1.1. Planning to change anticoagulation to Eliquis. Prescription was sent. Cardiology is on board. - Black stools reported by the . Last few days. Patient normally has a bowel movement every 3 to 4 days. In view of the above we will hold off the heparin. General surgery is consulted. In case he will have to do colonoscopy to if he find a tumor mass etc that may be bleeding. Currently denied any dark stools. FOBT negative. Hemoglobin is stable. No intervention from general surgery standpoint. Patient was started back on anticoagulation with Coumadin. Possible urinary tract infection. Continue with ceftriaxone follow-up urine culture report. Urine culture showed gram-negative bacilli. Final culture report pending. - Depression Prozac. Seroquel Objective - Vital Signs Vital signs: Vital Signs Temp 98 F 09/28/24 11:40 Pulse 72 09/28/24 11:40 Resp 16 09/28/24 11:40 BP 145/95 09/28/24 11:40 Pulse Ox 94 L 09/28/24 11:40 FiO2 Intake & Output 09/27/24 09/28/24 09/28/24 18:59 06:59 18:59 Intake Total 284.167 780 222 Balance 284.167 780 222 Weight 72.8 kg Intake: Intake, IV Titration 62.167 Amount Diltiazem 125 mg In 62.167 Dextrose 5% in Water 100 ml @ 5 MG/HR 5 mls/hr IV .Q24H [facility] Rx#:[id number] Oral 222 780 222 Other: Voiding Method Bedside Commode Bedside Commode Bedside Commode # Voids 2 2 2 # Bowel Movements 2 - Labs CBC & Chem 7: 09/28/24 05:38 09/28/24 05:38 Labs: Abnormal Lab Results - Last 24 Hours (Table) 09/27/24 09/28/24 Range/Units 06:33 05:38 MCHC 31.9 L (32.0-37.0) g/dL Hemoglobin A1c 6.7 H (<=6.0) %
[2024-09-29 06:47] LABS: INR 1.3 (<1.2); Prothrombin Time 13.7 sec (10.0-12.5)
[2024-09-29 08:21] VITALS: RESP 16; TEMP 97.2
[2024-09-29 11:25] VITALS: BP 154/105; PULSE 100
[2024-09-29] MEDS ORDERED: WARFARIN 5 MG TAB PO ONE (18:00)
--- NOTE | 2024-10-01 16:54 | P.DS ---
Providers Date of admission: 09/29/24 09:47 Attending physician: Luke Rodríguez Consults: 09/26/24 14:56 Consult Physician Routine Consulting Provider: Pavel Morales Consult Reason/Comments: black stools Do you want consulting provider notified?: Yes Primary care physician: Rohan Hernandez [place] [facility] Course: Final Diagnosis - Chronic atrial fibrillation, now presenting with a rapid ventricular rate. Patient did not present with any cardiac symptoms. Patient will be continued on Cardizem CD1 20 mg p.o. daily. Patient was started back on Coumadin. INR 1.1. Planning to change anticoagulation to Eliquis. Prescription was sent. Cardiology is on board. - Black stools reported by the . Last few days. Patient normally has a bowel movement every 3 to 4 days. Currently denied any dark stools. FOBT negative. Hemoglobin is stable. No intervention from general surgery standpoint. Patient was started back on anticoagulation with Coumadin. Possible urinary tract infection. Continue with ceftriaxone follow-up urine culture report. Urine culture showed gram-negative bacilli. Final culture report pending. - Depression Prozac. Seroquel Discharge Disposition Patient stable for discharge home. Continue course of antibiotics with oral ceftin twice daily for 3 days. As mentioned patient sent home on eliquis with free coupon for the first month. Follow up with PCP Dr. Hernandez and has an appt scheduled for October 02 at 1130 am. Follow up with Dr Nolan in 1 week. Hospital Course This is a pleasant 79 year old female Patient came in because she was having trouble making urine. Also not had a bowel movement for 3 to 4 days. Was having discomfort of the abdomen. Has decided to come in. In the ER patient is found to be in atrial fibrillation with rapid ventricular rate. About 156/min. Patient was placed on IV heparin and IV Cardizem. Patient denied any chest pain or shortness of breath. Except for the discomfort with GI urine symptoms. Tubbs catheter was placed in the ER. Patient also to bowel movement today. Coumadin is on hold for possible GI bleed. Heart rate is controlled. Laboratory data showed WBC 6.0 hemoglobin 13.3 and platelets 198 INR 1.3 proBNP 2350 LDL 105.6. Cardiology and general surgery is on board. FOBT negative. Hemoglobin is fairly stable. Patient was started back on warfarin. But INR level is 1.1. Cardiology recommending to switch patient to eliquis which was sent to the ER and free for the first 30 days with a coupon code. Patient can switch back to warfarin outpatient as she has a 300 a month copay with the eliquis after the first free month coupon. 2D echocardiogram showed normal EF. Aortic sclerosis with mild aortic insufficiency. Moderate MR. She has clinically improved on the IV ceftriaxone and has been urinating without difficulty. Heart rate remains controlled. No abdominal pain. Tubbs catheter removed and she is urinating without difficulty. Constitutional: Denied any fatigue denied any fever. Cardio vascular: denied any chest pain, palpitations Gastrointestinal: denied any nausea, vomiting, diarrhea Pulmonary: Denied any shortness of breath cough Neurologic denied any new focal deficits All inpatient medications were reviewed and appropriate changes in these medications as dictated in the interval history and assessment and plan. PHYSICAL EXAMINATION: GENERAL: The patient is alert and oriented x3, not in any acute distress. Well developed, well nourished. HEENT: Pupils are round and equally reacting to light. EOMI. No scleral icterus. No conjunctival pallor. Normocephalic, atraumatic. No pharyngeal erythema. No thyromegaly. CARDIOVASCULAR: S1 and S2 present. No murmurs, rubs, or gallops. PULMONARY: Chest is clear to auscultation, no wheezing or crackles. ABDOMEN: Soft, nontender, nondistended, normoactive bowel sounds. No palpable organomegaly. MUSCULOSKELETAL: No joint swelling or deformity. EXTREMITIES: No cyanosis, clubbing, or pedal edema. NEUROLOGICAL: Gross neurological examination did not reveal any focal deficits. SKIN: No rashes. Please see medication reconciliation for a list of current medications. Thank you for allowing us to participate in the care of this patient. The impression and plan of care has been dictated by Ashlee Matson Nurse Practitioner as directed. Dr. Janay MD I have performed a history and physical examination and medical decision making of this patient, discussed the same with the dictator, and agree with the dictators assessment and plan as written, documented as a scribe. Based on total visit time, I have performed more than 50% of this visit. Patient Condition at Discharge: Stable Plan - Discharge Summary Discharge Rx Participant: No New Discharge Prescriptions: New Apixaban [Eliquis] 5 mg PO BID #60 tab Pantoprazole [Protonix] 40 mg PO AC-BRKFST #30 tab cefuroxime axetiL [Ceftin] 500 mg PO BID 3 Days #6 tab Continue atenoloL [Tenormin] 100 mg PO HS FLUoxetine HCL [PROzac] 20 mg PO HS dilTIAZem HCL [Cardizem CD] 120 mg PO DAILY lamoTRIgine [LaMICtal] 300 mg PO HS QUEtiapine [SEROquel] 50 mg PO HS Discontinued Warfarin Sodium 5 mg PO MOWEFR [facility]in [facility] Medication List Apixaban [Eliquis] 5 mg PO BID #60 tab 09/26/24 [Rx] FLUoxetine HCL [PROzac] 20 mg PO HS 09/26/24 [History] QUEtiapine [SEROquel] 50 mg PO HS 09/26/24 [History] atenoloL [Tenormin] 100 mg PO HS 09/26/24 [History] dilTIAZem HCL [Cardizem CD] 120 mg PO DAILY 09/26/24 [History] lamoTRIgine [LaMICtal] 300 mg PO HS 09/26/24 [History] Pantoprazole [Protonix] 40 mg PO AC-BRKFST #30 tab 09/29/24 [Rx] cefuroxime axetiL [Ceftin] 500 mg PO BID 3 Days #6 tab 09/29/24 [Rx] Follow up Appointment(s)/Referral(s): Zohaib Nolan MD [Medical Doctor] - 1 Week Rohan Hernandez MD [Primary Care Provider] - 10/02/24 11:30 am None,Stated [REFERRING] - 1-2 days Patient Instructions/Handouts: A-fib (Atrial Fibrillation) (DC) Activity/Diet/Wound Care/Special Instructions: First month of eliquis is FREE after that it will be 312$ per month. If this is not affordable than follow up with your charge nurse before the month is up to get reinstated on warfarin. Complete antibiotic therapy with 3 more days of oral ceftin for the acute UTI. Discharge Disposition: HOME SELF-CARE
== END 2024-09-29 14:34 | disposition home or self-care (01) | DRG 309 ==
LOC: EC 21:34 → 3SCARD 09-26 04:22 → OBSVTOIN 09-29 09:47
PROVIDERS: ADMIT Hospitalist; ATTEND Hospitalist
DX: I48.0 Paroxysmal atrial fibrillation (principal); N39.0 Urinary tract infection, site not specified; F32.A Depression, unspecified; I70.0 Atherosclerosis of aorta; I08.3 Combined rheumatic disorders of mitral, aortic and tricuspid valves; B96.89 Other specified bacterial agents as the cause of diseases classified elsewhere; T44.7X6A Underdosing of beta-adrenoreceptor antagonists, initial encounter; F41.9 Anxiety disorder, unspecified; R33.9 Retention of urine, unspecified; R19.5 Other fecal abnormalities; R31.9 Hematuria, unspecified; Z79.01 Long term (current) use of anticoagulants; Z91.128 Patient's intentional underdosing of medication regimen for other reason; Z79.899 Other long term (current) drug therapy
CPT/HCPCS: 36415; 51702; 71046; 80048; 80053; 80061; 81001; 82272; 83036; 83690; 83735; 83880; 84443; 84484; 85025; 85610; 85730; 86850; 86900; 86901; 87077; 87086; 87186; 93005; 93306; 96365; 96366; 96368; 96375; 99291